=== PATIENT | female | born 1975 | race Caucasian/White ===

== ENCOUNTER 2016-02-21 12:56 | Emergency (ER) | payer SELFPAY ==
[2016-02-21 15:52] LABS: BASOPHILS 0.1 % (0.0-2.0); EOSINOPHILS 0.4 % (0-7); HEMATOCRIT 39.6 % (36.0-48.0); HEMOGLOBIN 12.9 g/dL (12-16); IMMATURE GRANULOCYTES 0.3 % (0-5); MCH 29.9 pg (26.0-34.0); MCHC 32.6 g/dL (31.0-37.0); MCV 91.9 fL (80.0-100.0); MEAN PLATELET VOLUME 10.3 fL (7.4-10.4); MONOCYTES 5.7 % (2-11); NEUTROPHILS 70.5 % (40-80); PLATELET COUNT 191 10x3/uL (130-400); RBC 4.31 10x6/uL (4.00-5.40); RDW 13.1 % (11.5-14.5); WBC 7.6 10x3/uL (4.8-10.8)
[2016-02-21 16:09] LABS: ALBUMIN 3.8 g/dL (3.4-5.0); ALKALINE PHOSPHATASE 66 U/L (46-116); ALT (SGPT) 29 U/L (10-68); BILIRUBIN - TOTAL 0.21 mg/dL (0.2-1.3); CALC OSMOLALITY 282 mosm/kg (275-300); CALCIUM 9.3 mg/dL (8.5-10.1); CARBON DIOXIDE 30.7 mmol/L (21.0-32.0); CHLORIDE - SERUM 105 mmol/L (98-107); CREATININE - SERUM 0.7 mg/dL (0.6-1.3); POTASSIUM - SERUM 4.2 mmol/L (3.5-5.1); PROTEIN - SERUM 7.4 g/dL (6.4-8.2); SODIUM 143 mmol/L (136-145); UREA NITROGEN 9 mg/dL (7-18); eGFR NON AFRICAN AMERICAN > 90 mL/min (90-120)
[2016-02-21 16:10] LABS: GLUCOSE 77 mg/dL (74-106)
[2016-02-21 16:31] LABS: UDS - AMPHET NEGATIVE QUAL (NEGATIVE); UDS - BARB NEGATIVE QUAL (NEGATIVE); UDS - BENZO NEGATIVE QUAL (NEGATIVE); UDS - COCAINE NEGATIVE QUAL (NEGATIVE); UDS - METH NEGATIVE QUAL (NEGATIVE); UDS - OPIATE NEGATIVE QUAL (NEGATIVE); UDS - PCP NEGATIVE QUAL (NEGATIVE); UDS - THC NEGATIVE QUAL (NEGATIVE)
[2016-02-21 16:32] LABS: APPEARANCE HAZY (CLEAR); BILIRUBIN NEGATIVE (NEGATIVE); COLOR YELLOW (YELLOW); GLUCOSE NEGATIVE (NEGATIVE); KETONE NEGATIVE (NEGATIVE); NITRITE NEGATIVE (NEGATIVE); PROTEIN TRACE mg/dL (NEGATIVE); UROBILINOGEN NORMAL (NORMAL)
[2016-02-21 16:33] LABS: BACTERIA FEW /hpf (NONE SEEN); EPITHELIAL CELLS 0-5 /hpf (0-5); LEUKOCYTE ESTERASE TRACE (NEGATIVE); RED CELLS - URINE >50 /hpf (0-5); WHITE CELLS - URINE 0-5 /hpf (0-5)
== END 2016-02-21 17:35 | disposition home or self-care (01) ==
LOC: D.ER 12:56
PROVIDERS: Physician Assistant
DX: R00.2 Palpitations (principal); R53.83 Other fatigue; F31.9 Bipolar disorder, unspecified

== ENCOUNTER 2016-03-03 20:39 | Emergency (ER) | payer MEDICAID ==
[2016-03-03 21:49] LABS: BASOPHILS 0.1 % (0.0-2.0); EOSINOPHILS 0.9 % (0-7); HEMATOCRIT 37.4 % (36.0-48.0); HEMOGLOBIN 12.5 g/dL (12-16); IMMATURE GRANULOCYTES 0.3 % (0-5); LYMPHOCYTES 30.6 % (15-50); MCH 30.1 pg (26.0-34.0); MCHC 33.4 g/dL (31.0-37.0); MCV 90.1 fL (80.0-100.0); MEAN PLATELET VOLUME 10.7 fL (7.4-10.4); MONOCYTES 8.3 % (2-11); NEUTROPHILS 59.8 % (40-80); PLATELET COUNT 175 10x3/uL (130-400); RBC 4.15 10x6/uL (4.00-5.40); RDW 13.2 % (11.5-14.5)
[2016-03-03 22:08] LABS: APPEARANCE CLEAR (CLEAR); BILIRUBIN NEGATIVE (NEGATIVE); COLOR YELLOW (YELLOW); GLUCOSE NEGATIVE (NEGATIVE); HCG URINE NEGATIVE (NEGATIVE); KETONE NEGATIVE (NEGATIVE); LEUKOCYTE ESTERASE NEGATIVE (NEGATIVE); NITRITE NEGATIVE (NEGATIVE); PROTEIN NEGATIVE (NEGATIVE); UROBILINOGEN NORMAL (NORMAL)
[2016-03-03 22:19] LABS: UDS - AMPHET NEGATIVE QUAL (NEGATIVE); UDS - BARB NEGATIVE QUAL (NEGATIVE); UDS - BENZO NEGATIVE QUAL (NEGATIVE); UDS - COCAINE NEGATIVE QUAL (NEGATIVE); UDS - METH NEGATIVE QUAL (NEGATIVE); UDS - OPIATE NEGATIVE QUAL (NEGATIVE); UDS - PCP NEGATIVE QUAL (NEGATIVE); UDS - THC NEGATIVE QUAL (NEGATIVE)
[2016-03-03 22:20] LABS: ALBUMIN 3.6 g/dL (3.4-5.0); ALKALINE PHOSPHATASE 72 U/L (46-116); ALT (SGPT) 26 U/L (10-68); BILIRUBIN - TOTAL 0.16 mg/dL (0.2-1.3); CALC OSMOLALITY 279 mosm/kg (275-300); CALCIUM 9.8 mg/dL (8.5-10.1); CHLORIDE - SERUM 104 mmol/L (98-107); CREATININE - SERUM 0.7 mg/dL (0.6-1.3); GLUCOSE 85 mg/dL (74-106); POTASSIUM - SERUM 3.4 mmol/L (3.5-5.1); SODIUM 142 mmol/L (136-145); UREA NITROGEN 7 mg/dL (7-18); eGFR NON AFRICAN AMERICAN > 90 mL/min (90-120)
== END 2016-03-04 03:16 | disposition short-term general hospital (02) ==
LOC: D.ER 20:39
PROVIDERS: Emergency Medicine
DX: R45.851 Suicidal ideations (principal); F31.9 Bipolar disorder, unspecified

== ENCOUNTER 2016-03-31 16:23 | Emergency (ER) | payer MEDICAID ==
[2016-03-31 17:00] LABS: BASOPHILS 0.4 % (0.0-2.0); HEMATOCRIT 35.7 % (36.0-48.0); HEMOGLOBIN 11.7 g/dL (12-16); LYMPHOCYTES 30.9 % (15-50); MCH 29.9 pg (26.0-34.0); MCHC 32.8 g/dL (31.0-37.0); MCV 91.3 fL (80.0-100.0); MEAN PLATELET VOLUME 10.1 fL (7.4-10.4); MONOCYTES 6.9 % (2-11); NEUTROPHILS 59.8 % (40-80); PLATELET COUNT 163 10x3/uL (130-400); RBC 3.91 10x6/uL (4.00-5.40); RDW 13.5 % (11.5-14.5); WBC 5.1 10x3/uL (4.8-10.8)
[2016-03-31 17:22] LABS: ALBUMIN 3.6 g/dL (3.4-5.0); ALKALINE PHOSPHATASE 63 U/L (46-116); ALT (SGPT) 37 U/L (10-68); BILIRUBIN - TOTAL 0.25 mg/dL (0.2-1.3); CALC OSMOLALITY 281 mosm/kg (275-300); CALCIUM 9.1 mg/dL (8.5-10.1); CARBON DIOXIDE 28.2 mmol/L (21.0-32.0); CHLORIDE - SERUM 104 mmol/L (98-107); CREATININE - SERUM 0.7 mg/dL (0.6-1.3); GLUCOSE 90 mg/dL (74-106); POTASSIUM - SERUM 3.3 mmol/L (3.5-5.1); PROTEIN - SERUM 6.9 g/dL (6.4-8.2); SODIUM 142 mmol/L (136-145); UREA NITROGEN 10 mg/dL (7-18); eGFR NON AFRICAN AMERICAN > 90 mL/min (90-120)
[2016-03-31 18:18] LABS: UDS - AMPHET NEGATIVE QUAL (NEGATIVE); UDS - BARB NEGATIVE QUAL (NEGATIVE); UDS - BENZO NEGATIVE QUAL (NEGATIVE); UDS - COCAINE NEGATIVE QUAL (NEGATIVE); UDS - METH NEGATIVE QUAL (NEGATIVE); UDS - OPIATE NEGATIVE QUAL (NEGATIVE); UDS - PCP NEGATIVE QUAL (NEGATIVE); UDS - THC NEGATIVE QUAL (NEGATIVE)
[2016-03-31 18:24] LABS: APPEARANCE CLEAR (CLEAR); BILIRUBIN NEGATIVE (NEGATIVE); COLOR YELLOW (YELLOW); GLUCOSE NEGATIVE (NEGATIVE); KETONE NEGATIVE (NEGATIVE); LEUKOCYTE ESTERASE TRACE (NEGATIVE); NITRITE NEGATIVE (NEGATIVE); PROTEIN NEGATIVE (NEGATIVE); UROBILINOGEN NORMAL (NORMAL)
[2016-03-31 18:25] LABS: EPITHELIAL CELLS 0-5 /hpf (0-5); RED CELLS - URINE OCC /hpf (0-5); WHITE CELLS - URINE OCC /hpf (0-5)
[2016-03-31 18:26] LABS: BACTERIA FEW /hpf (NONE SEEN)
== END 2016-03-31 20:53 | disposition short-term general hospital (02) ==
LOC: D.ER 16:23
PROVIDERS: Emergency Medicine
DX: F23 Brief psychotic disorder (principal); F31.9 Bipolar disorder, unspecified

== ENCOUNTER 2016-08-16 13:33 | Emergency (ER) | payer MEDICAID ==
[2016-08-16 13:52] LABS: APPEARANCE HAZY (CLEAR); BILIRUBIN NEGATIVE (NEGATIVE); COLOR YELLOW (YELLOW); GLUCOSE NEGATIVE (NEGATIVE); KETONE NEGATIVE (NEGATIVE); LEUKOCYTE ESTERASE NEGATIVE (NEGATIVE); NITRITE NEGATIVE (NEGATIVE); PROTEIN NEGATIVE (NEGATIVE); SPECIFIC GRAVITY 1.005 (1.005-1.020); UROBILINOGEN NORMAL (NORMAL)
[2016-08-16 13:59] LABS: UDS - AMPHET NEGATIVE QUAL (NEGATIVE); UDS - BARB NEGATIVE QUAL (NEGATIVE); UDS - BENZO POSITIVE QUAL (NEGATIVE); UDS - COCAINE NEGATIVE QUAL (NEGATIVE); UDS - METH NEGATIVE QUAL (NEGATIVE); UDS - OPIATE NEGATIVE QUAL (NEGATIVE); UDS - PCP NEGATIVE QUAL (NEGATIVE); UDS - THC NEGATIVE QUAL (NEGATIVE)
[2016-08-16 14:18] LABS: BASOPHILS 0.2 % (0-2); EOSINOPHILS 0.3 % (0-7); HEMOGLOBIN 12.3 g/dL (12-16); IMMATURE GRANULOCYTES 0.2 % (0-5); LYMPHOCYTES 28.9 % (15-50); MCH 30.9 pg (26.0-34.0); MCHC 33.2 g/dL (31.0-37.0); MEAN PLATELET VOLUME 10.1 fL (7.4-10.4); MONOCYTES 8.5 % (2-11); NEUTROPHILS 61.9 % (40-80); PLATELET COUNT 162 10x3/uL (130-400); RBC 3.98 10x6/uL (4.00-5.40); RDW 12.7 % (11.5-14.5); WBC 6.3 10x3/uL (4.8-10.8)
[2016-08-16 14:31] LABS: ALBUMIN 3.6 g/dL (3.4-5.0); ALKALINE PHOSPHATASE 60 U/L (46-116); ALT (SGPT) 26 U/L (10-68); BILIRUBIN - TOTAL 0.22 mg/dL (0.2-1.3); CALC OSMOLALITY 279 mosm/kg (275-300); CALCIUM 8.7 mg/dL (8.5-10.1); CARBON DIOXIDE 26.7 mmol/L (21.0-32.0); CHLORIDE - SERUM 106 mmol/L (98-107); CREATININE - SERUM 0.7 mg/dL (0.6-1.3); GLUCOSE 88 mg/dL (74-106); POTASSIUM - SERUM 3.8 mmol/L (3.5-5.1); PROTEIN - SERUM 6.9 g/dL (6.4-8.2); SODIUM 142 mmol/L (136-145); UREA NITROGEN 8 mg/dL (7-18); eGFR NON AFRICAN AMERICAN > 90 mL/min (90-120)
[2016-08-16 14:44] LABS: HCG SERUM NEGATIVE (NEGATIVE)
== END 2016-08-16 17:24 | disposition short-term general hospital (02) ==
LOC: D.ER 13:33
PROVIDERS: Emergency Medicine; Physician Assistant
DX: Z86.59 Personal history of other mental and behavioral disorders (principal); R45.851 Suicidal ideations; F33.9 Major depressive disorder, recurrent, unspecified

== ENCOUNTER 2016-08-26 22:40 | Emergency (ER) | payer MEDICAID | END 2016-08-27 00:08 | disposition home or self-care (01) | LOC: D.ER 22:40 | DX: Z86.59 Personal history of other mental and behavioral disorders (principal) ==

== ENCOUNTER 2016-09-12 23:11 | Emergency (ER) | payer MEDICAID ==
[2016-09-12 23:39] LABS: APPEARANCE CLEAR (CLEAR); COLOR YELLOW (YELLOW); LEUKOCYTE ESTERASE NEGATIVE (NEGATIVE); NITRITE NEGATIVE (NEGATIVE); PROTEIN NEGATIVE (NEGATIVE); SPECIFIC GRAVITY 1.015 (1.005-1.020)
[2016-09-12 23:40] LABS: BILIRUBIN NEGATIVE (NEGATIVE); GLUCOSE NEGATIVE (NEGATIVE); KETONE NEGATIVE (NEGATIVE); UROBILINOGEN NORMAL (NORMAL)
[2016-09-12 23:40] LABS: BASOPHILS 0.1 % (0-2); EOSINOPHILS 0.8 % (0-7); HEMATOCRIT 36.8 % (36.0-48.0); HEMOGLOBIN 12.5 g/dL (12-16); IMMATURE GRANULOCYTES 0.1 % (0-5); LYMPHOCYTES 29.8 % (15-50); MCH 31.3 pg (26.0-34.0); MCV 92.2 fL (80.0-100.0); MEAN PLATELET VOLUME 10.6 fL (7.4-10.4); MONOCYTES 5.7 % (2-11); NEUTROPHILS 63.5 % (40-80); PLATELET COUNT 156 10x3/uL (130-400); RBC 3.99 10x6/uL (4.00-5.40); RDW 12.5 % (11.5-14.5); WBC 7.7 10x3/uL (4.8-10.8)
[2016-09-12 23:47] LABS: UDS - AMPHET NEGATIVE QUAL (NEGATIVE); UDS - BARB NEGATIVE QUAL (NEGATIVE); UDS - BENZO POSITIVE QUAL (NEGATIVE); UDS - COCAINE NEGATIVE QUAL (NEGATIVE); UDS - METH NEGATIVE QUAL (NEGATIVE); UDS - OPIATE NEGATIVE QUAL (NEGATIVE); UDS - PCP NEGATIVE QUAL (NEGATIVE); UDS - THC NEGATIVE QUAL (NEGATIVE)
[2016-09-12 23:47] LABS: HCG SERUM NEGATIVE (NEGATIVE)
[2016-09-12 23:53] LABS: ALBUMIN 3.5 g/dL (3.4-5.0); ALKALINE PHOSPHATASE 72 U/L (46-116); ALT (SGPT) 22 U/L (10-68); BILIRUBIN - TOTAL 0.16 mg/dL (0.2-1.3); CALC OSMOLALITY 279 mosm/kg (275-300); CALCIUM 8.8 mg/dL (8.5-10.1); CARBON DIOXIDE 29.9 mmol/L (21.0-32.0); CHLORIDE - SERUM 103 mmol/L (98-107); CREATININE - SERUM 0.7 mg/dL (0.6-1.3); GLUCOSE 122 mg/dL (74-106); POTASSIUM - SERUM 3.6 mmol/L (3.5-5.1); PROTEIN - SERUM 6.7 g/dL (6.4-8.2); SODIUM 140 mmol/L (136-145); UREA NITROGEN 12 mg/dL (7-18); eGFR NON AFRICAN AMERICAN > 90 mL/min (90-120)
== END 2016-09-13 05:36 | disposition home or self-care (01) ==
LOC: D.ER 23:11
PROVIDERS: Emergency Medicine
DX: F23 Brief psychotic disorder (principal); R44.2 Other hallucinations; R45.1 Restlessness and agitation; F41.9 Anxiety disorder, unspecified

== ENCOUNTER 2016-10-01 08:45 | Emergency (ER) | payer MEDICAID ==
[2016-10-01 09:20] LABS: BASOPHILS 0.4 % (0-2); EOSINOPHILS 0.4 % (0-7); HEMATOCRIT 37.9 % (36.0-48.0); HEMOGLOBIN 12.9 g/dL (12-16); IMMATURE GRANULOCYTES 0.2 % (0-5); LYMPHOCYTES 29.4 % (15-50); MCH 30.9 pg (26.0-34.0); MCV 90.9 fL (80.0-100.0); MONOCYTES 7.2 % (2-11); NEUTROPHILS 62.4 % (40-80); RBC 4.17 10x6/uL (4.00-5.40); RDW 12.3 % (11.5-14.5); WBC 5.6 10x3/uL (4.8-10.8)
[2016-10-01 09:27] LABS: PLATELET COUNT 212 10x3/uL (130-400)
[2016-10-01 09:28] LABS: ALBUMIN 3.5 g/dL (3.4-5.0); ALKALINE PHOSPHATASE 56 U/L (46-116); ALT (SGPT) 25 U/L (10-68); BILIRUBIN - TOTAL 0.24 mg/dL (0.2-1.3); CALC OSMOLALITY 274 mosm/kg (275-300); CALCIUM 8.5 mg/dL (8.5-10.1); CARBON DIOXIDE 27.9 mmol/L (21.0-32.0); CHLORIDE - SERUM 103 mmol/L (98-107); CREATININE - SERUM 0.7 mg/dL (0.6-1.3); GLUCOSE 107 mg/dL (74-106); POTASSIUM - SERUM 3.6 mmol/L (3.5-5.1); PROTEIN - SERUM 6.9 g/dL (6.4-8.2); SODIUM 138 mmol/L (136-145); UREA NITROGEN 10 mg/dL (7-18); eGFR NON AFRICAN AMERICAN > 90 mL/min (90-120)
[2016-10-01 10:01] LABS: UDS - AMPHET NEGATIVE QUAL (NEGATIVE); UDS - BARB NEGATIVE QUAL (NEGATIVE); UDS - BENZO POSITIVE QUAL (NEGATIVE); UDS - COCAINE NEGATIVE QUAL (NEGATIVE); UDS - METH NEGATIVE QUAL (NEGATIVE); UDS - OPIATE NEGATIVE QUAL (NEGATIVE); UDS - PCP NEGATIVE QUAL (NEGATIVE); UDS - THC NEGATIVE QUAL (NEGATIVE)
[2016-10-01 10:20] LABS: APPEARANCE CLEAR (CLEAR); BILIRUBIN NEGATIVE (NEGATIVE); COLOR YELLOW (YELLOW); GLUCOSE NEGATIVE (NEGATIVE); KETONE NEGATIVE (NEGATIVE); LEUKOCYTE ESTERASE NEGATIVE (NEGATIVE); NITRITE NEGATIVE (NEGATIVE); PROTEIN NEGATIVE (NEGATIVE); UROBILINOGEN NORMAL (NORMAL)
== END 2016-10-01 11:13 | disposition home or self-care (01) ==
LOC: D.ER 08:45
PROVIDERS: Emergency Medicine
DX: R53.1 Weakness (principal); F17.200 Nicotine dependence, unspecified, uncomplicated; R53.83 Other fatigue

== ENCOUNTER → 2016-10-27 16:47 | Outpatient (CLI) | payer MEDICAID | END | disposition home or self-care (01) | LOC: D.MAMMO 11:00 | DX: Z12.31 Encounter for screening mammogram for malignant neoplasm of breast (principal) ==

== ENCOUNTER → 2016-10-28 19:21 | Outpatient (CLI) | payer MEDICAID | END | disposition home or self-care (01) | LOC: D.SLEEP 19:21 | DX: G47.30 Sleep apnea, unspecified (principal) ==

== ENCOUNTER 2016-11-01 14:51 | Emergency (ER) | payer MEDICAID ==
[2016-11-01 15:23] LABS: APPEARANCE CLEAR (CLEAR); BILIRUBIN NEGATIVE (NEGATIVE); COLOR STRAW (YELLOW); GLUCOSE NEGATIVE (NEGATIVE); KETONE NEGATIVE (NEGATIVE); LEUKOCYTE ESTERASE NEGATIVE (NEGATIVE); NITRITE NEGATIVE (NEGATIVE); PROTEIN NEGATIVE (NEGATIVE); SPECIFIC GRAVITY 1.005 (1.005-1.020); UROBILINOGEN NORMAL (NORMAL)
[2016-11-01 15:29] LABS: BASOPHILS 0.2 % (0-2); EOSINOPHILS 1.7 % (0-7); HEMATOCRIT 36.9 % (36.0-48.0); HEMOGLOBIN 12.7 g/dL (12-16); IMMATURE GRANULOCYTES 0.2 % (0-5); LYMPHOCYTES 28.1 % (15-50); MCH 31.2 pg (26.0-34.0); MCHC 34.4 g/dL (31.0-37.0); MCV 90.7 fL (80.0-100.0); MONOCYTES 7.2 % (2-11); NEUTROPHILS 62.6 % (40-80); PLATELET COUNT 191 10x3/uL (130-400); RBC 4.07 10x6/uL (4.00-5.40); RDW 12.5 % (11.5-14.5); WBC 5.7 10x3/uL (4.8-10.8)
[2016-11-01 15:35] LABS: UDS - AMPHET NEGATIVE QUAL (NEGATIVE); UDS - BARB NEGATIVE QUAL (NEGATIVE); UDS - BENZO POSITIVE QUAL (NEGATIVE); UDS - COCAINE NEGATIVE QUAL (NEGATIVE); UDS - METH NEGATIVE QUAL (NEGATIVE); UDS - OPIATE NEGATIVE QUAL (NEGATIVE); UDS - PCP NEGATIVE QUAL (NEGATIVE); UDS - THC NEGATIVE QUAL (NEGATIVE)
[2016-11-01 15:51] LABS: ALBUMIN 3.6 g/dL (3.4-5.0); ALKALINE PHOSPHATASE 55 U/L (46-116); ALT (SGPT) 27 U/L (10-68); CALC OSMOLALITY 275 mosm/kg (275-300); CALCIUM 8.9 mg/dL (8.5-10.1); CARBON DIOXIDE 27.6 mmol/L (21.0-32.0); CHLORIDE - SERUM 104 mmol/L (98-107); CREATININE - SERUM 0.7 mg/dL (0.6-1.3); GLUCOSE 86 mg/dL (74-106); POTASSIUM - SERUM 3.6 mmol/L (3.5-5.1); PROTEIN - SERUM 6.8 g/dL (6.4-8.2); SODIUM 139 mmol/L (136-145); UREA NITROGEN 11 mg/dL (7-18); eGFR NON AFRICAN AMERICAN > 90 mL/min (90-120)
== END 2016-11-01 20:02 | disposition short-term general hospital (02) ==
LOC: D.ER 14:51
PROVIDERS: Emergency Medicine
DX: F33.9 Major depressive disorder, recurrent, unspecified (principal); R45.851 Suicidal ideations

== ENCOUNTER 2016-11-19 06:57 | Day surgery (SDC) | payer MEDICAID ==
[2016-11-18 13:55] LABS: HEMATOCRIT 36.1 % (36.0-48.0); HEMOGLOBIN 12.2 g/dL (12-16); MCH 31.3 pg (26.0-34.0); MCHC 33.8 g/dL (31.0-37.0); MCV 92.6 fL (80.0-100.0); MEAN PLATELET VOLUME 9.4 fL (7.4-10.4); RBC 3.9 10x6/uL (4.00-5.40); RDW 12.8 % (11.5-14.5); WBC 7.2 10x3/uL (4.8-10.8)
[~2016-11-19 06:57] MED LIST: BUPROPION XL300 MG PO; GLYCOLAX527 GM PO; PROZAC40 MG PO; VALIUM10 MG PO; ZOLOFT50 MG PO
[2016-11-19 10:03] VITALS: BMI 38.1
[2016-11-19 12:36] LABS: HCG SERUM NEGATIVE (NEGATIVE)
--- NOTE | 2016-12-08 10:04 | OP ---
PATIENT NAME: CRUZ SANCHEZ MEDICAL RECORD: [id number] :71 LOCATION:[facility] ADMISSION DATE: SURGEON: MANAS MONTERO DATE OF OPERATION: 11/19/2016 SURGEON: Manas Montero DPM. PREOPERATIVE DIAGNOSIS: Plantar fasciitis, left foot. POSTOPERATIVE DIAGNOSIS: Plantar fasciitis, left foot. PROCEDURE: Open partial plantar fasciotomy, left foot. ANESTHESIA: TIVA with local field block. HEMOSTASIS: Pneumatic ankle tourniquet inflated to 250 mmHg. ESTIMATED BLOOD LOSS: Minimal. MATERIALS: 3-0 nylon. INJECTABLES: A 10 cc of 0.5% bupivacaine plain and 5 cc of 1.0% Lidocaine plain. The patient has longstanding history of pain associated with her left foot. She has failed conservative measures. She is here today for surgical correction of this chronically painful condition. I have reviewed with her the risks and benefits of the procedure. Complications were discussed. Her questions were answered. She was appropriately consented for the above procedure. The patient was brought into the operating room and placed on the operating table in supine position. A timeout was called with Dr. Montero, who identified the patient, the surgical site, and the surgery to be performed. Once appropriate anesthesia was obtained, the foot was prepped and draped in the usual aseptic manner. The pneumatic ankle tourniquet was inflated to 250 mmHg around the well-padded left ankle. PROCEDURE: Plantar fasciotomy, left foot. Attention was directed to the plantar surface of the left foot where a 3-cm linear incision was made over the medial calcaneal tubercle area. This incision was carried deep to soft tissue with care being taken to retract all vital neurovascular structures. All bleeders were cauterized along the way. Through this incision, the medial one-third band of the plantar fascia was identified. The band was noted to be quite tight. Utilizing a fresh 15-blade, the medial one-third of the plantar fascia was transected from medial to lateral. The surgical site was inspected for any remaining tight plantar fascial bands and none were noted. The surgical site was then irrigated with copious amounts of normal sterile saline via bulb syringe. The surgical site was then reinvestigated for any remaining tight fascial bands and none were noted. The surgical site was then reirrigated with copious amounts of normal sterile saline via bulb syringe. OPERATIVE REPORT [id number] CRUZ SANCHEZ The skin margins were reapproximated and coapted using 3-0 nylon. A dressing consisting of Xeroform, 4 x 4's, Kerlix, and an Aguilar bandage was applied to the left foot. The pneumatic ankle tourniquet was deflated and capillary refill time was immediate to all digits of the left foot. The patient will be discharged home with instructions to ice and elevate the left foot. She has a boot to help with offloading. She was provided with prescriptions for Highland 5/325, Phenergan 25 mg, and ibuprofen 800 mg. She was dispensed my cell phone number for any after hour difficulties and there were no complications with this procedure. TRANSINT:[id number] Voice Confirmation ID: [id number] DOCUMENT ID: [id number] MANAS MONTERO at 1004 CC: [id number] DICTATION DATE: 11/19/16 1254 MERCHANT MARINER: 11/19/[address] [facility] 11/19/16 [id number] [place] [address]
== END 2016-11-19 13:45 | disposition home or self-care (01) ==
LOC: D.OPS 06:57 → D.PAN 11:30 → D.OPS 13:00
PROVIDERS: Anesthesiology
DX: M72.2 Plantar fascial fibromatosis (principal); Z01.812 Encounter for preprocedural laboratory examination

== ENCOUNTER 2016-11-30 17:44 | Emergency (ER) | payer MEDICAID ==
[2016-11-30 18:24] LABS: UDS - AMPHET NEGATIVE QUAL (NEGATIVE); UDS - BARB NEGATIVE QUAL (NEGATIVE); UDS - BENZO POSITIVE QUAL (NEGATIVE); UDS - COCAINE NEGATIVE QUAL (NEGATIVE); UDS - OPIATE NEGATIVE QUAL (NEGATIVE); UDS - PCP NEGATIVE QUAL (NEGATIVE); UDS - THC NEGATIVE QUAL (NEGATIVE)
[2016-11-30 18:25] LABS: APPEARANCE CLEAR (CLEAR); COLOR YELLOW (YELLOW)
[2016-11-30 18:26] LABS: BILIRUBIN NEGATIVE (NEGATIVE); GLUCOSE NEGATIVE (NEGATIVE); KETONE NEGATIVE (NEGATIVE); NITRITE NEGATIVE (NEGATIVE); PROTEIN NEGATIVE (NEGATIVE); UROBILINOGEN NORMAL (NORMAL)
[2016-11-30 18:48] LABS: BASOPHILS 0.2 % (0-2); EOSINOPHILS 1.1 % (0-7); HEMATOCRIT 34.8 % (36.0-48.0); HEMOGLOBIN 11.6 g/dL (12-16); IMMATURE GRANULOCYTES 0.2 % (0-5); LYMPHOCYTES 25.9 % (15-50); MCH 31.2 pg (26.0-34.0); MCHC 33.3 g/dL (31.0-37.0); MCV 93.5 fL (80.0-100.0); MEAN PLATELET VOLUME 9.9 fL (7.4-10.4); MONOCYTES 6.8 % (2-11); NEUTROPHILS 65.8 % (40-80); RBC 3.72 10x6/uL (4.00-5.40); WBC 6.2 10x3/uL (4.8-10.8)
[2016-11-30 18:49] LABS: PLATELET COUNT 190 10x3/uL (130-400)
[2016-11-30 18:56] LABS: HCG SERUM NEGATIVE (NEGATIVE)
[2016-11-30 19:37] LABS: ALBUMIN 3.4 g/dL (3.4-5.0); ALKALINE PHOSPHATASE 58 U/L (46-116); ALT (SGPT) 24 U/L (10-68); CALC OSMOLALITY 287 mosm/kg (275-300); CALCIUM 8.5 mg/dL (8.5-10.1); CARBON DIOXIDE 29.1 mmol/L (21.0-32.0); CHLORIDE - SERUM 107 mmol/L (98-107); CREATININE - SERUM 0.7 mg/dL (0.6-1.3); GLUCOSE 92 mg/dL (74-106); POTASSIUM - SERUM 3.6 mmol/L (3.5-5.1); PROTEIN - SERUM 6.3 g/dL (6.4-8.2); SODIUM 144 mmol/L (136-145); UREA NITROGEN 14 mg/dL (7-18); eGFR NON AFRICAN AMERICAN > 90 mL/min (90-120)
[2016-11-30 19:39] LABS: BILIRUBIN - TOTAL 0.03 mg/dL (0.2-1.3)
== END 2016-11-30 20:30 | disposition home or self-care (01) ==
LOC: D.ER 17:44
PROVIDERS: Emergency Medicine
DX: F33.9 Major depressive disorder, recurrent, unspecified (principal)

== ENCOUNTER 2016-12-01 14:20 | Emergency (ER) | payer MEDICAID ==
[2016-12-01 14:51] LABS: UDS - AMPHET NEGATIVE QUAL (NEGATIVE); UDS - BARB NEGATIVE QUAL (NEGATIVE); UDS - BENZO POSITIVE QUAL (NEGATIVE); UDS - COCAINE NEGATIVE QUAL (NEGATIVE); UDS - OPIATE NEGATIVE QUAL (NEGATIVE); UDS - PCP NEGATIVE QUAL (NEGATIVE); UDS - THC NEGATIVE QUAL (NEGATIVE)
[2016-12-01 14:59] LABS: COLOR RED (YELLOW)
[2016-12-01 15:00] LABS: APPEARANCE HAZY (CLEAR); BILIRUBIN NEGATIVE (NEGATIVE); GLUCOSE NEGATIVE (NEGATIVE); KETONE NEGATIVE (NEGATIVE); NITRITE NEGATIVE (NEGATIVE); PROTEIN TRACE mg/dL (NEGATIVE); SPECIFIC GRAVITY 1.005 (1.005-1.020); UROBILINOGEN NORMAL (NORMAL)
[2016-12-01 15:01] LABS: BACTERIA FEW /hpf (NONE SEEN); EPITHELIAL CELLS 0-5 /hpf (0-5); RED CELLS - URINE >50 /hpf (0-5)
[2016-12-01 15:17] LABS: ALBUMIN 3.5 g/dL (3.4-5.0); ALKALINE PHOSPHATASE 57 U/L (46-116); ALT (SGPT) 24 U/L (10-68); BILIRUBIN - TOTAL 0.15 mg/dL (0.2-1.3); CALCIUM 8.6 mg/dL (8.5-10.1); CARBON DIOXIDE 27.1 mmol/L (21.0-32.0); CHLORIDE - SERUM 106 mmol/L (98-107); CREATININE - SERUM 0.7 mg/dL (0.6-1.3); POTASSIUM - SERUM 3.5 mmol/L (3.5-5.1); PROTEIN - SERUM 6.4 g/dL (6.4-8.2); SODIUM 143 mmol/L (136-145); eGFR NON AFRICAN AMERICAN > 90 mL/min (90-120)
[2016-12-01 15:23] LABS: BASOPHILS 0 % (0-2); EOSINOPHILS 0.9 % (0-7); HEMATOCRIT 36.3 % (36.0-48.0); HEMOGLOBIN 12.2 g/dL (12-16); IMMATURE GRANULOCYTES 0.2 % (0-5); LYMPHOCYTES 23.3 % (15-50); MCH 31.1 pg (26.0-34.0); MCHC 33.6 g/dL (31.0-37.0); MCV 92.6 fL (80.0-100.0); MEAN PLATELET VOLUME 10.2 fL (7.4-10.4); MONOCYTES 6.4 % (2-11); NEUTROPHILS 69.2 % (40-80); PLATELET COUNT 189 10x3/uL (130-400); RBC 3.92 10x6/uL (4.00-5.40); WBC 5.7 10x3/uL (4.8-10.8)
[2016-12-01 15:33] LABS: CALC OSMOLALITY 285 mosm/kg (275-300); GLUCOSE 141 mg/dL (74-106); UREA NITROGEN 10 mg/dL (7-18)
== END 2016-12-02 00:07 | disposition short-term general hospital (02) ==
LOC: D.ER 14:20
PROVIDERS: Emergency Medicine
DX: R45.851 Suicidal ideations (principal); Z86.59 Personal history of other mental and behavioral disorders

== ENCOUNTER 2017-01-26 15:45 | Emergency (ER) | payer MEDICAID ==
[2017-01-26 17:07] LABS: BASOPHILS 0.1 % (0-2); EOSINOPHILS 0.3 % (0-7); HEMATOCRIT 34.9 % (36.0-48.0); IMMATURE GRANULOCYTES 0.3 % (0-5); LYMPHOCYTES 21.9 % (15-50); MCH 30.8 pg (26.0-34.0); MCHC 34.4 g/dL (31.0-37.0); MCV 89.7 fL (80.0-100.0); MEAN PLATELET VOLUME 10.1 fL (7.4-10.4); MONOCYTES 8.4 % (2-11); PLATELET COUNT 160 10x3/uL (130-400); RBC 3.89 10x6/uL (4.00-5.40); RDW 12.1 % (11.5-14.5); WBC 7.3 10x3/uL (4.8-10.8)
== END 2017-01-26 17:25 | disposition home or self-care (01) ==
LOC: D.ER 15:45
PROVIDERS: Emergency Medicine
DX: R10.9 Unspecified abdominal pain (principal)

== ENCOUNTER → 2017-04-20 09:59 | Outpatient (CLI) | payer MEDICAID ==
[~2017-04-20 09:59] MED LIST changes: +AMBIEN5 MG PO; +CARAFATE1 G PO; +CLONAZEPAM2 MG/TAB PO; +INVEGA6 MG/BLIST PO
== END | disposition home or self-care (01) ==
LOC: D.RAD 09:59
DX: R13.10 Dysphagia, unspecified (principal)

== ENCOUNTER 2017-04-27 12:53 | Emergency (ER) | payer MEDICAID ==
[~2017-04-27 12:53] MED LIST changes: -AMBIEN5 MG PO; -CARAFATE1 G PO; -CLONAZEPAM2 MG/TAB PO; -INVEGA6 MG/BLIST PO
[2017-04-27 13:34] LABS: APPEARANCE HAZY (CLEAR); BILIRUBIN NEGATIVE (NEGATIVE); COLOR YELLOW (YELLOW); GLUCOSE NEGATIVE (NEGATIVE); KETONE NEGATIVE (NEGATIVE); NITRITE NEGATIVE (NEGATIVE); PROTEIN NEGATIVE (NEGATIVE); SPECIFIC GRAVITY 1.015 (1.005-1.020); UROBILINOGEN NORMAL (NORMAL)
[2017-04-27 13:37] LABS: BACTERIA MODERATE /hpf (NONE SEEN); MUCUS >1+ /lpf (NONE SEEN); RED CELLS - URINE 0-5 /hpf (0-5); WHITE CELLS - URINE OCC /hpf (0-5)
[2017-04-27 13:45] LABS: BASOPHILS 0.1 % (0-2); EOSINOPHILS 1.2 % (0-7); HEMATOCRIT 35.3 % (36.0-48.0); HEMOGLOBIN 11.5 g/dL (12-16); IMMATURE GRANULOCYTES 0.1 % (0-5); MCH 29.8 pg (26.0-34.0); MCHC 32.6 g/dL (31.0-37.0); MCV 91.5 fL (80.0-100.0); MEAN PLATELET VOLUME 10.5 fL (7.4-10.4); MONOCYTES 5.4 % (2-11); NEUTROPHILS 71.2 % (40-80); PLATELET COUNT 186 10x3/uL (130-400); RBC 3.86 10x6/uL (4.00-5.40); WBC 6.7 10x3/uL (4.8-10.8)
[2017-04-27 14:06] LABS: ALBUMIN 3.5 g/dL (3.4-5.0); ALKALINE PHOSPHATASE 67 U/L (46-116); ALT (SGPT) 27 U/L (10-68); AMYLASE - SERUM 36 U/L (25-115); CALC OSMOLALITY 283 mosm/kg (275-300); CALCIUM 8.7 mg/dL (8.5-10.1); CARBON DIOXIDE 28.2 mmol/L (21.0-32.0); CHLORIDE - SERUM 106 mmol/L (98-107); CREATININE - SERUM 0.8 mg/dL (0.6-1.3); GLUCOSE 102 mg/dL (74-106); POTASSIUM - SERUM 3.7 mmol/L (3.5-5.1); PROTEIN - SERUM 7.1 g/dL (6.4-8.2); SODIUM 142 mmol/L (136-145); UREA NITROGEN 14 mg/dL (7-18); eGFR NON AFRICAN AMERICAN 83 mL/min (90-120)
[2017-04-27 14:40] LABS: UDS - AMPHET NEGATIVE QUAL (NEGATIVE); UDS - BARB NEGATIVE QUAL (NEGATIVE); UDS - BENZO NEGATIVE QUAL (NEGATIVE); UDS - COCAINE NEGATIVE QUAL (NEGATIVE); UDS - OPIATE NEGATIVE QUAL (NEGATIVE); UDS - PCP NEGATIVE QUAL (NEGATIVE); UDS - THC NEGATIVE QUAL (NEGATIVE)
== END 2017-04-28 13:00 | disposition home or self-care (01) ==
LOC: D.ER 12:53
PROVIDERS: Family Medicine; Nurse Practitioner Family
DX: Z86.59 Personal history of other mental and behavioral disorders (principal); R45.851 Suicidal ideations

== ENCOUNTER 2017-06-12 00:59 | Emergency (ER) | payer MEDICAID | END 2017-06-12 01:42 | disposition home or self-care (01) | LOC: D.ER 00:59 | DX: L50.9 Urticaria, unspecified (principal) ==

== ENCOUNTER 2017-07-14 16:15 | Emergency (ER) | payer MEDICAID ==
[2017-07-14 16:29] VITALS: Ht 157.5 cm
[2017-07-14] MEDS ORDERED: CLONAZEPAM2 MG/TAB PO (16:37)
[2017-07-14] MEDS ORDERED: CARAFATE1 G PO (16:38)
[2017-07-14 17:57] LABS: APPEARANCE CLEAR (CLEAR); BILIRUBIN NEGATIVE (NEGATIVE); COLOR YELLOW (YELLOW); GLUCOSE NEGATIVE (NEGATIVE); KETONE NEGATIVE (NEGATIVE); NITRITE NEGATIVE (NEGATIVE); PROTEIN NEGATIVE (NEGATIVE); UROBILINOGEN NORMAL (NORMAL)
[2017-07-14 18:11] LABS: BASOPHILS 0.1 % (0-2); EOSINOPHILS 0 % (0-7); HEMATOCRIT 36.6 % (36.0-48.0); HEMOGLOBIN 12.5 g/dL (12-16); IMMATURE GRANULOCYTES 0.2 % (0-5); LYMPHOCYTES 14.8 % (15-50); MCH 30.6 pg (26.0-34.0); MCHC 34.2 g/dL (31.0-37.0); MCV 89.5 fL (80.0-100.0); MEAN PLATELET VOLUME 10.1 fL (7.4-10.4); MONOCYTES 4.8 % (2-11); NEUTROPHILS 80.1 % (40-80); PLATELET COUNT 191 10x3/uL (130-400); RBC 4.09 10x6/uL (4.00-5.40); WBC 11.2 10x3/uL (4.8-10.8)
[2017-07-14 18:14] LABS: UDS - AMPHET NEGATIVE QUAL (NEGATIVE); UDS - BARB NEGATIVE QUAL (NEGATIVE); UDS - BENZO NEGATIVE QUAL (NEGATIVE); UDS - COCAINE NEGATIVE QUAL (NEGATIVE); UDS - OPIATE NEGATIVE QUAL (NEGATIVE); UDS - PCP NEGATIVE QUAL (NEGATIVE); UDS - THC NEGATIVE QUAL (NEGATIVE)
[2017-07-14] MEDS ORDERED: INVEGA6 MG/BLIST PO (18:21)
[2017-07-14] MEDS ORDERED: AMBIEN5 MG PO (18:21)
[2017-07-14 18:28] LABS: ALBUMIN 3.6 g/dL (3.4-5.0); ALKALINE PHOSPHATASE 81 U/L (46-116); ALT (SGPT) 26 U/L (10-68); BILIRUBIN - TOTAL 0.22 mg/dL (0.2-1.3); CALC OSMOLALITY 272 mosm/kg (275-300); CALCIUM 8.5 mg/dL (8.5-10.1); CARBON DIOXIDE 24.5 mmol/L (21.0-32.0); CHLORIDE - SERUM 101 mmol/L (98-107); CREATININE - SERUM 0.8 mg/dL (0.6-1.3); POTASSIUM - SERUM 3.5 mmol/L (3.5-5.1); PROTEIN - SERUM 7.4 g/dL (6.4-8.2); SODIUM 135 mmol/L (136-145); UREA NITROGEN 9 mg/dL (7-18); eGFR NON AFRICAN AMERICAN 82 mL/min (90-120)
[2017-07-14 18:29] LABS: GLUCOSE 165 mg/dL (74-106)
[2017-07-14 18:40] VITALS: BP 112/078
== END 2017-07-14 18:40 | disposition home or self-care (01) ==
LOC: D.ER 16:15
PROVIDERS: Family Medicine
DX: F41.9 Anxiety disorder, unspecified (principal); F23 Brief psychotic disorder; F43.9 Reaction to severe stress, unspecified; R45.1 Restlessness and agitation; G47.00 Insomnia, unspecified

== ENCOUNTER 2017-08-08 11:04 | Emergency (ER) | payer MEDICAID ==
[~2017-08-08] VITALS: Ht 157.5 cm; Wt 100.1 kg
[~2017-08-08 11:04] MED LIST changes: +AMBIEN5 MG PO; +CARAFATE1 G PO; +CLONAZEPAM2 MG/TAB PO; +INVEGA6 MG/BLIST PO
[2017-08-08 11:10] VITALS: Ht 157.5 cm; Wt 100.1 kg
[2017-08-08 11:58] LABS: APPEARANCE HAZY (CLEAR); BILIRUBIN NEGATIVE (NEGATIVE); COLOR YELLOW (YELLOW); GLUCOSE NEGATIVE (NEGATIVE); KETONE NEGATIVE (NEGATIVE); NITRITE NEGATIVE (NEGATIVE); PH 7.5 (5.0-6.0); PROTEIN NEGATIVE (NEGATIVE); SPECIFIC GRAVITY 1.005 (1.005-1.020); UROBILINOGEN NORMAL (NORMAL)
[2017-08-08 11:59] LABS: UDS - AMPHET NEGATIVE QUAL (NEGATIVE); UDS - BARB NEGATIVE QUAL (NEGATIVE); UDS - BENZO NEGATIVE QUAL (NEGATIVE); UDS - COCAINE NEGATIVE QUAL (NEGATIVE); UDS - OPIATE NEGATIVE QUAL (NEGATIVE); UDS - PCP NEGATIVE QUAL (NEGATIVE); UDS - THC NEGATIVE QUAL (NEGATIVE)
[2017-08-08 12:01] LABS: BACTERIA MODERATE /hpf (NONE SEEN); EPITHELIAL CELLS 0-5 /hpf (0-5); RED CELLS - URINE OCC /hpf (0-5)
[2017-08-08 12:16] LABS: BASOPHILS 0 % (0-2); EOSINOPHILS 0.1 % (0-7); HEMATOCRIT 38.2 % (36.0-48.0); HEMOGLOBIN 12.7 g/dL (12-16); IMMATURE GRANULOCYTES 0.1 % (0-5); LYMPHOCYTES 21.7 % (15-50); MCH 30.5 pg (26.0-34.0); MCHC 33.2 g/dL (31.0-37.0); MCV 91.6 fL (80.0-100.0); MEAN PLATELET VOLUME 10.4 fL (7.4-10.4); MONOCYTES 5.4 % (2-11); NEUTROPHILS 72.7 % (40-80); PLATELET COUNT 170 10x3/uL (130-400); RBC 4.17 10x6/uL (4.00-5.40); RDW 13.5 % (11.5-14.5); WBC 8.3 10x3/uL (4.8-10.8)
[2017-08-08 12:28] LABS: HCG SERUM NEGATIVE (NEGATIVE)
[2017-08-08 12:35] LABS: ALBUMIN 3.8 g/dL (3.4-5.0); ALKALINE PHOSPHATASE 85 U/L (46-116); ALT (SGPT) 20 U/L (10-68); BILIRUBIN - TOTAL 0.15 mg/dL (0.2-1.3); CALC OSMOLALITY 280 mosm/kg (275-300); CALCIUM 8.9 mg/dL (8.5-10.1); CARBON DIOXIDE 30.3 mmol/L (21.0-32.0); CHLORIDE - SERUM 105 mmol/L (98-107); CREATININE - SERUM 0.8 mg/dL (0.6-1.3); GLUCOSE 98 mg/dL (74-106); POTASSIUM - SERUM 3.9 mmol/L (3.5-5.1); PROTEIN - SERUM 7.6 g/dL (6.4-8.2); SODIUM 141 mmol/L (136-145); UREA NITROGEN 12 mg/dL (7-18); eGFR NON AFRICAN AMERICAN 82 mL/min (90-120)
[2017-08-08 14:18] VITALS: BP 147/64
== END 2017-08-08 14:19 | disposition home or self-care (01) ==
LOC: D.ER 11:04
PROVIDERS: Family Medicine
DX: T50.905A Adverse effect of unspecified drugs, medicaments and biological substances, initial encounter (principal); Y92.22 Religious institution as the place of occurrence of the external cause; R41.82 Altered mental status, unspecified; Z86.59 Personal history of other mental and behavioral disorders; K21.9 Gastro-esophageal reflux disease without esophagitis; E11.9 Type 2 diabetes mellitus without complications

== ENCOUNTER 2017-08-20 18:21 | Emergency (ER) | payer MEDICAID ==
[~2017-08-20] VITALS: Ht 157.5 cm; Wt 98.6 kg
[2017-08-20 18:24] VITALS: Ht 157.5 cm; Wt 98.6 kg
[2017-08-20 19:45] LABS: BASOPHILS 0.1 % (0-2); EOSINOPHILS 0.5 % (0-7); HEMATOCRIT 35.5 % (36.0-48.0); IMMATURE GRANULOCYTES 0.1 % (0-5); LYMPHOCYTES 26.7 % (15-50); MCH 30.4 pg (26.0-34.0); MCHC 33.8 g/dL (31.0-37.0); MCV 89.9 fL (80.0-100.0); MEAN PLATELET VOLUME 10.3 fL (7.4-10.4); MONOCYTES 4.6 % (2-11); PLATELET COUNT 193 10x3/uL (130-400); RBC 3.95 10x6/uL (4.00-5.40); RDW 13.2 % (11.5-14.5); WBC 7.6 10x3/uL (4.8-10.8)
[2017-08-20 19:45] LABS: APPEARANCE CLEAR (CLEAR); BILIRUBIN NEGATIVE (NEGATIVE); COLOR STRAW (YELLOW); GLUCOSE NEGATIVE (NEGATIVE); KETONE NEGATIVE (NEGATIVE); NITRITE NEGATIVE (NEGATIVE); PROTEIN NEGATIVE (NEGATIVE); UROBILINOGEN NORMAL (NORMAL)
[2017-08-20 19:46] LABS: WHITE CELLS - URINE 0-5 /hpf (0-5)
[2017-08-20 19:47] LABS: BACTERIA MODERATE /hpf (NONE SEEN); EPITHELIAL CELLS 0-5 /hpf (0-5)
[2017-08-20 19:56] LABS: ALBUMIN 3.6 g/dL (3.4-5.0); ANION GAP 11.6 mmol/L (8-16); BILIRUBIN - TOTAL 0.15 mg/dL (0.2-1.3); CALCIUM 8.9 mg/dL (8.5-10.1); POTASSIUM - SERUM 3.6 mmol/L (3.5-5.1); PROTEIN - SERUM 7.2 g/dL (6.4-8.2)
[2017-08-20 20:05] LABS: UDS - AMPHET NEGATIVE QUAL (NEGATIVE); UDS - BARB NEGATIVE QUAL (NEGATIVE); UDS - BENZO NEGATIVE QUAL (NEGATIVE); UDS - COCAINE NEGATIVE QUAL (NEGATIVE); UDS - OPIATE NEGATIVE QUAL (NEGATIVE); UDS - PCP NEGATIVE QUAL (NEGATIVE); UDS - THC NEGATIVE QUAL (NEGATIVE)
[2017-08-20 20:12] LABS: HCG SERUM NEGATIVE (NEGATIVE)
[2017-08-20 20:26] LABS: THYROID STIMULATING HORMONE 0.96 uIU/mL (0.36-3.74)
[2017-08-20 23:04] VITALS: BP 135/74
== END 2017-08-20 23:57 | disposition home or self-care (01) ==
LOC: D.ER 18:21
PROVIDERS: Family Medicine
DX: R45.851 Suicidal ideations (principal); R44.0 Auditory hallucinations

== ENCOUNTER 2018-01-16 14:16 | Emergency (ER) | payer MEDICAID ==
[2018-01-16 14:44] LABS: APPEARANCE CLEAR (CLEAR); BILIRUBIN NEGATIVE (NEGATIVE); COLOR STRAW (YELLOW); GLUCOSE NEGATIVE (NEGATIVE); KETONE NEGATIVE (NEGATIVE); NITRITE NEGATIVE (NEGATIVE); PROTEIN NEGATIVE (NEGATIVE); SPECIFIC GRAVITY 1.005 (1.005-1.020); UROBILINOGEN NORMAL (NORMAL)
[2018-01-16 14:47] LABS: BACTERIA MODERATE /hpf (NONE SEEN); EPITHELIAL CELLS 0-5 /hpf (0-5); RED CELLS - URINE 0-5 /hpf (0-5); WHITE CELLS - URINE 0-5 /hpf (0-5)
[2018-01-16 14:54] LABS: BASOPHILS 0.1 % (0-2); EOSINOPHILS 0.1 % (0-7); HEMOGLOBIN 11.5 g/dL (12-16); IMMATURE GRANULOCYTES 0.1 % (0-5); LYMPHOCYTES 23.9 % (15-50); MCH 29.1 pg (26.0-34.0); MCHC 32.9 g/dL (31.0-37.0); MCV 88.6 fL (80.0-100.0); MEAN PLATELET VOLUME 10.3 fL (7.4-10.4); MONOCYTES 6.7 % (2-11); NEUTROPHILS 69.1 % (40-80); PLATELET COUNT 191 10x3/uL (130-400); RBC 3.95 10x6/uL (4.00-5.40); RDW 13.3 % (11.5-14.5); WBC 7.5 10x3/uL (4.8-10.8)
[2018-01-16 15:10] LABS: ALBUMIN 3.4 g/dL (3.4-5.0); ALKALINE PHOSPHATASE 58 U/L (46-116); ALT (SGPT) 17 U/L (10-68); CALC OSMOLALITY 279 mosm/kg (275-300); CALCIUM 8.3 mg/dL (8.5-10.1); CARBON DIOXIDE 30.6 mmol/L (21.0-32.0); CHLORIDE - SERUM 104 mmol/L (98-107); CREATININE - SERUM 0.7 mg/dL (0.6-1.3); GLUCOSE 87 mg/dL (74-106); POTASSIUM - SERUM 3.6 mmol/L (3.5-5.1); PROTEIN - SERUM 6.9 g/dL (6.4-8.2); SODIUM 142 mmol/L (136-145); UREA NITROGEN 8 mg/dL (7-18); eGFR NON AFRICAN AMERICAN > 90 mL/min (90-120)
[2018-01-16 15:20] LABS: AMYLASE - SERUM 36 U/L (25-115); CKMB 0.6 U/L (0.0-3.6); CREATINE KINASE 78 UL (21-215); LIPASE 115 U/L (73-393); MAGNESIUM - SERUM 1.6 mg/dL (1.8-2.4)
[2018-01-16 15:27] LABS: TROPONIN-I < 0.017 ng/mL (0.000-0.060)
== END 2018-01-16 15:57 | disposition home or self-care (01) ==
LOC: D.ER 14:16
PROVIDERS: Family Medicine
DX: R53.83 Other fatigue (principal); E11.9 Type 2 diabetes mellitus without complications; Z87.898 Personal history of other specified conditions

== ENCOUNTER 2018-06-22 18:08 | Emergency (ER) | payer MEDICAID ==
[~2018-06-22] VITALS: Ht 157.5 cm; Wt 87.3 kg
[2018-06-22 18:22] VITALS: Ht 157.5 cm; Wt 87.3 kg
[2018-06-22] MEDS ORDERED: PROVENTIL/2.5 MG/3 M INH (18:26)
[2018-06-22] MEDS ORDERED: TORADOL10 MG PO (18:26)
[2018-06-22] MEDS ORDERED: NEXIUM40 MG PO (18:27)
[2018-06-22] MEDS ORDERED: ULTRAM50 MG PO (18:27)
[2018-06-22] MEDS ORDERED: COZAAR50 MG PO (18:28)
[2018-06-22 18:53] LABS: APPEARANCE CLEAR (CLEAR); BILIRUBIN NEGATIVE (NEGATIVE); COLOR YELLOW (YELLOW); GLUCOSE NEGATIVE (NEGATIVE); KETONE NEGATIVE (NEGATIVE); NITRITE NEGATIVE (NEGATIVE); PROTEIN NEGATIVE (NEGATIVE); SPECIFIC GRAVITY 1.025 (1.005-1.020); UROBILINOGEN NORMAL (NORMAL)
[2018-06-22 19:25] LABS: BASOPHILS 0.4 % (0-2); EOSINOPHILS 0.4 % (0-7); HEMATOCRIT 34.4 % (36.0-48.0); HEMOGLOBIN 11.5 g/dL (12-16); IMMATURE GRANULOCYTES 0.2 % (0-5); LYMPHOCYTES 30.4 % (15-50); MCH 29.7 pg (26.0-34.0); MCHC 33.4 g/dL (31.0-37.0); MCV 88.9 fL (80.0-100.0); MEAN PLATELET VOLUME 9.9 fL (7.4-10.4); MONOCYTES 7.2 % (2-11); NEUTROPHILS 61.4 % (40-80); PLATELET COUNT 193 10x3/uL (130-400); RBC 3.87 10x6/uL (4.00-5.40); RDW 13.2 % (11.5-14.5); WBC 5.4 10x3/uL (4.8-10.8)
[2018-06-22 19:46] LABS: ALBUMIN 3.4 g/dL (3.4-5.0); ALKALINE PHOSPHATASE 58 U/L (46-116); ALT (SGPT) 22 U/L (10-68); AMYLASE - SERUM 36 U/L (25-115); BILIRUBIN - TOTAL 0.23 mg/dL (0.2-1.3); CALC OSMOLALITY 286 mosm/kg (275-300); CALCIUM 8.3 mg/dL (8.5-10.1); CARBON DIOXIDE 26.8 mmol/L (21.0-32.0); CHLORIDE - SERUM 108 mmol/L (98-107); CREATININE - SERUM 0.7 mg/dL (0.6-1.3); GLUCOSE 95 mg/dL (74-106); POTASSIUM - SERUM 3.7 mmol/L (3.5-5.1); PROTEIN - SERUM 6.7 g/dL (6.4-8.2); SODIUM 144 mmol/L (136-145); UREA NITROGEN 13 mg/dL (7-18); eGFR NON AFRICAN AMERICAN > 90 mL/min (90-120)
[2018-06-22 22:06] VITALS: BP 122/76
== END 2018-06-22 22:06 | disposition home or self-care (01) ==
LOC: D.ER 18:08
PROVIDERS: Family Medicine
DX: R10.9 Unspecified abdominal pain (principal)

== ENCOUNTER 2018-08-01 12:18 | Inpatient (IN) | payer MEDICAID ==
[~2018-08-01] VITALS: Ht 157.5 cm; Wt 90.0 kg
[~2018-08-01 12:18] MED LIST changes: +COZAAR50 MG PO; +NEXIUM40 MG PO; +PROVENTIL/2.5 MG/3 M INH; +TORADOL10 MG PO; +ULTRAM50 MG PO
[2018-08-05] MEDS ORDERED: ZOLOFT50 MG PO (13:19)
[2018-08-05] MEDS ORDERED: TYLENOL #4 W/CO1 TAB PO (13:20)
[2018-08-05 14:30] LABS: BASOPHILS 0.2 % (0-2); EOSINOPHILS 1.1 % (0-7); HEMATOCRIT 33.1 % (36.0-48.0); HEMOGLOBIN 11.1 g/dL (12-16); IMMATURE GRANULOCYTES 0.2 % (0-5); LYMPHOCYTES 37.7 % (15-50); MCH 29.8 pg (26.0-34.0); MCHC 33.5 g/dL (31.0-37.0); MEAN PLATELET VOLUME 10.4 fL (7.4-10.4); MONOCYTES 6.7 % (2-11); NEUTROPHILS 54.1 % (40-80); PLATELET COUNT 183 10x3/uL (130-400); RBC 3.72 10x6/uL (4.00-5.40); WBC 6.1 10x3/uL (4.8-10.8)
[2018-08-05 14:38] LABS: CALC OSMOLALITY 281 mosm/kg (275-300); CALCIUM 8.5 mg/dL (8.5-10.1); CARBON DIOXIDE 29.3 mmol/L (21.0-32.0); CHLORIDE - SERUM 105 mmol/L (98-107); CREATININE - SERUM 0.7 mg/dL (0.6-1.3); GLUCOSE 108 mg/dL (74-106); POTASSIUM - SERUM 4.1 mmol/L (3.5-5.1); SODIUM 141 mmol/L (136-145); UREA NITROGEN 12 mg/dL (7-18); eGFR NON AFRICAN AMERICAN > 90 mL/min (90-120)
[2018-08-10] VITALS (14 sets, daily range): BP systolic 95–130; BP diastolic 53–81; Ht 157.5 cm; Wt 90.0 kg
[2018-08-10 06:03] LABS: HCG URINE NEGATIVE (NEGATIVE)
--- NOTE | 2018-08-10 07:05 | NUR ---
DR. BOGGS NOTIFIED AND REVIEWED PATIENT'S BEHAVIOR AND ASSESSMENT RESULTS. PATIENT IS A LOW RISK DR. BOGGS. DR. BOGGS STATED TO GIVE RESOURCES TO PATIENT AT TIME OF DISCHARGE. NO FURTHER ORDERS AT THIS TIME. RESOURCES REVIEWED WITH PATIENT AND SHE VERBALIZED UNDERSTANDING.
--- NOTE | 2018-08-10 11:05 | NUR ---
received pt to labor and delivery from recovery room post total abd hyst by dr. brown. pt has large white dressing over incision to abdomen, c/d/i. abdomen palpates soft. pt is resting with eyes closed, awakens when spoken to. resp even and ul. pt has scd's on, connected to pump. arevalo cath in place draining light yellow urine, with 40 ml's noted in urometer, and 350 ml's noted in arevalo bag upon arrival. denies sob, nausea, or difficulty breathing. iv infusing lr at moderate rate, off pump. see emar for all meds adm by this rn. no redness or swelling noted to iv site. pt's family to room. see flowsheet for assessment. srup x2, call light and phone within reach.
[2018-08-10] MEDS ORDERED: HYDROCODON-ACE1 EA10 PO (12:25)
--- NOTE | 2018-08-10 12:32 | NUR ---
lr 1000 ml fluid bolus completed. lr 1000 ml set on pump to infuse at 150 ml/hr. pt is awake and talking. pt rating pain as 8/10 to incisional area. pt denies sob, nausea, or difficulty breathing. pt wishes to rest at this time. srup x2, call light and phone. sig other at bedside.
--- NOTE | 2018-08-10 13:45 | NUR ---
pt calls out carbon blocks press operator light and requests to sit up more in the bed. assisted pt with repositioning, with hob elevated to 30 degrees. pt performs coughing and deep breathing exercises. incentive spirometer explained to pt and pt uses this well, x3. abdomen continues to palpate soft. incision has 1 inch area of bright red drainage underneath it in the lower left side, area marked. ice pack placed over gown to incision. arevalo cath continues to drain light clear yellow urine. pt continues to use dilaudid human service technician. srup x2, call light and phone within reach. sig other at bedside. pt reminded of npo status, and future lab work. pt rating pain to incisonal area as 5/10, states "it diogenes aches, but it's not real bad right now." human service technician button within reach.
--- NOTE | 2018-08-10 16:00 | NUR ---
pt calls nurse to room, assisted pt in repositioning to right side. pt moving very well. pt's abdomen palpates soft. new ice pack placed over gown to incision. area of red drainage on dressing same size as before, otherwise dry and intact. pt awake and laughing and talking with nurse. plan of care discussed with pt. pt rating pain as 5/10 to incisional area. arevalo cath continues to drain yellow urine, see i/o flowsheet. pt denies nausea, dizziness, sob, or difficulty breathing. sr up x2, call light and phone within reach.
--- NOTE | 2018-08-10 16:15 | NUR ---
dr. brown to pt's room to discuss plan of care. md explains to pt that she may have ativan iv q8 hrs prn, pt may have clear liquid diet for supper, and advance in the morning, md plans to d/c arevalo, and md plans to start toradol in the morning. output reported to md while in room.
[2018-08-10 17:09] LABS: BASOPHILS 0 % (0-2); EOSINOPHILS 0 % (0-7); HEMATOCRIT 29.9 % (36.0-48.0); IMMATURE GRANULOCYTES 0.1 % (0-5); LYMPHOCYTES 5.2 % (15-50); MCH 29.4 pg (26.0-34.0); MCHC 33.4 g/dL (31.0-37.0); MCV 87.9 fL (80.0-100.0); MEAN PLATELET VOLUME 10.2 fL (7.4-10.4); MONOCYTES 4.4 % (2-11); NEUTROPHILS 90.3 % (40-80); PLATELET COUNT 153 10x3/uL (130-400); RDW 13.1 % (11.5-14.5); WBC 10.3 10x3/uL (4.8-10.8)
[2018-08-10 17:36] LABS: CALC OSMOLALITY 276 mosm/kg (275-300); CALCIUM 7.9 mg/dL (8.5-10.1); CARBON DIOXIDE 29.3 mmol/L (21.0-32.0); CHLORIDE - SERUM 103 mmol/L (98-107); CREATININE - SERUM 0.6 mg/dL (0.6-1.3); GLUCOSE 133 mg/dL (74-106); POTASSIUM - SERUM 4.5 mmol/L (3.5-5.1); SODIUM 138 mmol/L (136-145); UREA NITROGEN 9 mg/dL (7-18); eGFR NON AFRICAN AMERICAN > 90 mL/min (90-120)
--- NOTE | 2018-08-10 18:00 | NUR ---
to pt's room, pt is resting with eyes closed, resp even and ul at 16. pt awakened, pt informed O2 sat is 89-92% on room while sleeping. pt awake and breathing deeply. O2 2 liters NC applied. O2 sat now 98-100%.
--- NOTE | 2018-08-10 19:05 | NUR ---
report given to 7 p shift. pt is resting with eyes closed.
--- NOTE | 2018-08-10 19:10 | NUR ---
REPORT RECEIVED FROM RENU MOJICA.
--- NOTE | 2018-08-10 19:20 | NUR ---
PATIENT LYING QUIETLY IN BED WITH EYES CLOSED. EASILY AROUSED. ASSESSMENT DONE AT THIS TIME. RESPIRATIONS AT EASE. LUNG SOUNDS CLEAR IN ALL LINDER. HEART REGULAR RATE AND RHYTHM. ABDOMEN SOFT AND TENDER TO TOUCH. DRESSING NOTED TO ABDOMEN. SMALL AMOUNT OF DRAINAGE NOTED. BOWEL SOUNDS PRESENT IN ALL QUADRANTS. NO EDEMA NOTED IN EXTREMITIES. SCD'S ON AND WORKING. PATIENT STATES PAIN 2 OUT OF 10. EDUCATED PATIENT ON COUGHING AND DEEP BREATHING WELL USE OF INCENTIVE SPIROMETER. PATIENT MOVES SELF IN BED. DENIES ANY NEEDS OR CONCERNS. BED IN LOWEST POSITION, SIDE RAILS UP X 2, C/L AND WATER WITHIN REACH.
--- NOTE | 2018-08-10 21:00 | NUR ---
PATIENT LYING QUIETLY IN BED WITH EYES CLOSED. EASILY AROUSED. STATES PAIN 3 OUT OF 10. PATIENT MOVED SELF TO R SIDE. PATIENT COUGHING AND DEEP BREATHING. DENIES ANY NEEDS AT THIS TIME. BED IN LOWEST POSITION, SIDE RAILS UP X 2, C/L AND WATER WITHIN REACH.
--- NOTE | 2018-08-10 23:00 | NUR ---
PATIENT SITTING UP IN BED. STATES PAIN 2 OUT OF 10. DENIES ANY NEEDS AT THIS TIME. PATIENT REPOSITIONED SELF TO L SIDE. PATIENT COUGHING AND DEEP BREATHING. BED IN LOWEST POSITION, SIDE RAILS UP X 2, C/L AND AIRWAY CONTROLLER BUTTON WITHIN REACH.
[2018-08-11] VITALS (7 sets, daily range): BP systolic 99–127; BP diastolic 55–76
--- NOTE | 2018-08-11 00:03 | NUR ---
PATIENT LYING QUIETLY IN BED WITH EYES CLOSED. RESPIRATIONS AT EASE. NO SIGNS OF DISTRESS NOTED. BED IN LOWEST POSITION, SIDE RAILS UP X 2, C/L, WATER AND SOFA INSPECTOR BUTTON WITHIN REACH.
--- NOTE | 2018-08-11 01:31 | NUR ---
PATIENT SITTING UP IN BED. STATES PAIN 6 OUT OF 10. LACTATION CONSULTANT SYRINGE CHANGED AT THIS TIME. SEE MAR. NATALIE MOJICA SECOND WITNESS. PATIENT PUSHES LACTATION CONSULTANT BUTTON AT THIS TIME. ICE PACK PLACED TO INCISION. PATIENT DENIES ANY FURTHER NEEDS. BED IN LOWEST POSITION, SIDE RAILS UP X 2, C/L, WATER, AND LACTATION CONSULTANT BUTTON WITHIN REACH.
--- NOTE | 2018-08-11 03:00 | NUR ---
PATIENT LYING QUIETLY IN BED WITH EYES CLOSED. RESPIRATIONS AT EASE. NO SIGNS OF DISTRESS NOTED. BED IN LOWEST POSITION, SIDE RAILS UP X 2, C/L, WATER, AND ORDERLY BUTTON WITHIN REACH.
--- NOTE | 2018-08-11 04:01 | NUR ---
PATIENT LYING QUIETLY IN BED WITH EYES CLOSED. RESPIRATIONS AT EASE. NO SIGNS OF DISTRESS NOTED. BED IN LOWEST POSTION, SIDE RAILS UP X 2, C/L, WATER, AND SCIENTIFIC INFORMATICS LEADER BUTTON WITHIN REACH.
--- NOTE | 2018-08-11 06:00 | NUR ---
PATIENT LYING QUIETLY IN BED WITH EYES CLOSED. RESPIRATIONS AT EASE. NO SIGNS OF DISTRESS NOTED. BED IN LOWEST POSITION, SIDE RAILS UP X 2, C/L, WATER, AND FIELD IRRIGATION WORKER BUTTON WITHIN REACH.
--- NOTE | 2018-08-11 07:00 | NUR ---
PATIENT SITTING UP IN BED. STATES PAIN 2 OUT OF 10. FAULKNER BAG EMPTIED AT THIS TIME. OBTAINED 2200 CC'S OF CLEAR YELLOW URINE. PATIENT DENIES ANY NEEDS AT THIS TIME. BED IN LOWEST POSTION, SIDE RAILS UP X 2, C/L, WATER, AND NURSING SPECIALIST WITHIN REACH.
--- NOTE | 2018-08-11 08:31 | NUR ---
ASSESSMENT DONE. AWAKE AND ALERT. VERBAL RESPONSES APPRO TO QUESTIONS. SUAREZ ON COMMAND. VS DONE. DENIES PASSING FLATUS YET. O2 PER NC.
--- NOTE | 2018-08-11 09:12 | NUR ---
MEDS GIVEN ORDERED. IV CHANGED TO SALINE LOCK- FLUSHED WITH 10CC/NS. O2 SAT 99%. O2 NC REMOVED AT THIS TIME. FAULKNER CATH REMOVED WITH 650CC URINE IN BAG.
--- NOTE | 2018-08-11 09:52 | NUR ---
RATES PAIN A 6 ON SCALE OF 0-10. MED GIVEN FOR PAIN.
--- NOTE | 2018-08-11 09:56 | NUR ---
O2 SAT 94%
--- NOTE | 2018-08-11 11:10 | NUR ---
RINGS CALL LIGHT- REQUESTING TO GET UP.PT AMBULATORY TO BATHROOM. TOLERATED WELL. UNABLE TO VOID- STATES THAT DOES NOT FEEL LIKE SHE NEEDS TO VOID BUT REQUESTING TO WALK AROUND.
--- NOTE | 2018-08-11 11:21 | NUR ---
DR CORDON HERE TO SEE PT.
--- NOTE | 2018-08-11 12:30 | NUR ---
AMBULATORY TO BATHROOM- TOLERATED WELL. VOIDED 100CC CLEARISH URINE. RETURNS TO BED.
--- NOTE | 2018-08-11 12:38 | NUR ---
STATES WANTS TO SIT ON SIDE OF BED FOR A BIT. REG DIET SERVED. CALL LIGHT IN REACH.
--- NOTE | 2018-08-11 13:56 | NUR ---
RINGS CALL LIGHT- STATES WOULD LIKE PAIN MEDICATION- RATES PAIN AN 8 ON SCALE OF 0-10. STATES PAIN IS ABD AND SOME IN BACK. MED GIVEN. PT STATES THAT ALSO WANTS TO SHOWER.
--- NOTE | 2018-08-11 14:13 | NUR ---
VOIDED 200CC IN CONTAINER. SHOWER DONE AND LINENS CHANGED. ABD DRESSING REMOVED AFTER SHOWER. SUMMER INTACT AND INCISION APPEARANCE WNL. JACQUELINE PAD PLACED VERTICALLY AND ABD BINDER REPLACED. PT INSTRUCTED ON CARE OF INCISION.
--- NOTE | 2018-08-11 15:04 | NUR ---
UP TO BATHROOM- VOIDED 250CC URINE.
--- NOTE | 2018-08-11 15:05 | NUR ---
RETURNS TO BED. WHEN ASK ABOUT PAIN REASSESSMENT SHE RATES PAIN A 7-8. STATES HAS SOME SHARP PAINS AT TIMES.
--- NOTE | 2018-08-11 16:00 | NUR ---
UP TO BATHROOM NEEDED. VOIDED 300CC INTO CONTAINER.
--- NOTE | 2018-08-11 16:57 | NUR ---
NURSING SUPERVISIOR CALLS THIS AM AND REPORTS THAT THE PT NEEDS A SUICIDE RISK SCREENING DONE. PER PROCESS INTERVENTION IT APPEARS THAT SCICIDE RISK ASSESSMENT HAS BEEN COMPLETED. PT STATES THAT SOMEONE CAME AND TALKED TO HER YESTERDAY CONCERNING THIS. RISK SCREENING AGAIN DONE AT THIS TIME PER REQUEST OF AM SUPERVISIOR AND NOTIFED HUMBERTO FRENCH RN- SUPERVISIOR ON AT THIS TIME. PT DENIES ANY THOUGHTS OF HARMING SELF.
--- NOTE | 2018-08-11 18:00 | NUR ---
AMBULATING IN [facility]. [facility].
--- NOTE | 2018-08-11 18:16 | NUR ---
RATES PAIN A 7 ON SCALE OF 0-10. PAIN MED GIVEN. PT DENIES PASSING GAS YET. PAIN MED GIVEN.
--- NOTE | 2018-08-11 18:35 | NUR ---
RINGS CALL LIGHT- STATES THAT SHE HAS PASSED GAS.
--- NOTE | 2018-08-11 19:20 | NUR ---
PT. LYING ON RT SIDE SLEEPING. RESPIRATIONS UNLABORED.
--- NOTE | 2018-08-11 19:50 | NUR ---
PT UP TO BATHROOM AND VOIDED 200CC. PASSING FLATUS. BACK TO BED.
--- NOTE | 2018-08-11 19:57 | NUR ---
VITAL SIGNS OBTAINED. BREATH SOUNDS CLEAR AND BOWEL SOUNDS AUDIBLE. PT. AWAKENED. PT. STATES SHE SLEEPS OFTEN BUT AWAKENS EASILY. SALINELOCK NOTED IN RT. HAND. NO REDNESS NOR EDEMA NOTED. ABD INCISION WITHOUT REDNESS NOR DRAINAGE. LYING ON BACK WITH HOB AT 45 DEGREES. ABD. BINDER NOTED IN PLACE. NO EDEMA OF LOWER EXTREMITIES NOTED. RATES PAIN A 5 OF 10 ON PAIN SCALE. STATES SHE ARRANGED FOR ASSISTANCE WHEN SHE GOES HOME.
--- NOTE | 2018-08-11 21:04 | NUR ---
PT. C/O FEELING COLD. ROOM TEMP. COLD AND THERMOSTAT ADJUSTED. PT. COVERED WITH WARM BLANKET.
--- NOTE | 2018-08-11 21:09 | NUR ---
PT. AWAKENED FOR SCHEDULED MEDS.
--- NOTE | 2018-08-11 21:15 | NUR ---
SCDS APPLIED. CAUTIONED PT. TO REMEMBER THAT THE SCDS ARE ON PRIOR TO GETTING UP TO THE BATHROOM. PT.STATES UNDERSTANDING. TALKATIVE WHEN AWAKE.
--- NOTE | 2018-08-11 22:20 | NUR ---
LYING ON RT SIDE WITH EYES CLOSED. RESPIRATIONS UNLABORED. DOES NOT AROUSE TO THIS NURSE OPENING ROOM DOOR.
--- NOTE | 2018-08-11 23:22 | NUR ---
PT. AWAKENED FOR VITAL SIGNS. PT. COMMENTS THAT SHE IS TOO WARM. PT. NOTED TO BE UNDER 4 BLANKETS. BLANKETS REMOVED. VITAL SIGNS OBTAINED. PT. REPORTS THAT SHE NEEDS TO GET UP TO BATHROOM. SCDS OFF AND UP TO BATHROOM.
--- NOTE | 2018-08-11 23:23 | NUR ---
ENCOURAGED PT. TO COUGH AND DEEP BREATHE. HANDED INCENTIVE SPIROMETER TO PT. AND ASKED HER TO USE. POOR EFFORT WITH FIRST TWO ATTTEMPTS AND WITH ENCOURAGEMENT, BETTER EFFORT ON THIRD ATTEMPT.
--- NOTE | 2018-08-11 23:29 | NUR ---
TO BATHROOM. PASSED LARGE AMT. FLATUS AND VOIDED. C/O HEADACHE.
--- NOTE | 2018-08-11 23:34 | NUR ---
UP WALKING IN HALLWAY. THIS NURSE WALKED WITH PT. BURPING FREQUENTLY.
--- NOTE | 2018-08-11 23:36 | NUR ---
BACK TO ROOM. INTO BED. SCDS RECONNECTED AND PUMP FUNCTIONAL. ALL COVERS REMOVED FROM BED EXCEPT ONE LIGHT BLANKET. PT. AGREEABLE. TURNED SELF TO LT SIDE AND STATED THAT SHE WAS GOING TO LIE ON THAT SIDE FOR A WHILE.
--- NOTE | 2018-08-12 00:48 | NUR ---
AWAKENED FOR SCHEDULED MED ADMINISTRATION. AWAKE ONLY BRIEF PERIODS.
--- NOTE | 2018-08-12 00:58 | NUR ---
DR. CORDON CALLED AND INFORMED OF PT'S TEMPERATURE ELEVATION. INQUIRES ABOUT PT'S ACTIVITY AND HOW MUCH SHE IS OUT OF BED. INFORMATION PROVIDED. ORDER RECEIVED.
--- NOTE | 2018-08-12 01:30 | NUR ---
IV SALINE FLUSHED. PT ENCOURAGED TO WALK IN HALLWAY AGAIN. USED INCENTIVE SPIROMENTER AND ABLE TO ACHIEVE UP TO 1500 WITH ENCOURAGEMENT. UP TO BATHROOM TO VOID AND THEN TO WALK IN HALLWAY.
--- NOTE | 2018-08-12 01:35 | NUR ---
ASSISTED WITH PLACING NON SKID SOCKS TO BLE. UP TO AMBULATE IN [place]. STEADY GAIT NOTED. AMBULATED X2 ON UNIT. BACK TO ROOM. SCD'S TO BLE. ICE WATER AND GRAPE JUICE PROVIDED PER REQUEST. STATES THAT SHE FEELS HOT, ROOM TEMP DECREASED PER PT REQUEST. BED IN LOW POSITION WITH UPPER SIDE RAILS RAISED X2. CALL LIGHT AND PHONE WITHIN REACH. WILL CONTINUE TO MONITOR.
--- NOTE | 2018-08-12 03:36 | NUR ---
PT.LYING ON BACK WITH EYES CLOSED. RESPIRATIONS UNLABORED.
--- NOTE | 2018-08-12 03:57 | NUR ---
AWAKENED FOR SCHEDULED MED. BACK TO SLEEP QUICKLY.
--- NOTE | 2018-08-12 04:45 | NUR ---
PT. GETTING UP TO BATHROOM. TEMP. CHECKED. SCDS DISCONNECTED.
--- NOTE | 2018-08-12 04:51 | NUR ---
AMBULATING IN HALLWAY. GAIT STEADY. WALKING BEHIND WHEELCHAIR FOR SUPPORT.
[2018-08-12 08:38] VITALS: BP 96/52
--- NOTE | 2018-08-12 08:40 | NUR ---
to pt's room, am assessment completed. see flowsheet. pt has vertical incision with myah, c/d/i. no redness or swelling noted to incision, no drainage. pt denies sob, dizzines, or difficulty breathing. discharge plannign discussed with pt.
--- NOTE | 2018-08-12 08:55 | NUR ---
dr. brown on unit, report given to of pt's montse arroyo. dr. brown to room to speak with pt.
--- NOTE | 2018-08-12 08:58 | NUR ---
PT AT DESK. REQUESTING TO TAKE NEXIUM-HOME MED THIS AM. DR CORDON ON UNIT. NOTIFIED OF PT REQUEST. ORDER RECEIVED.
--- NOTE | 2018-08-12 09:14 | OP ---
PATIENT NAME: CRUZ SANCHEZ MEDICAL RECORD: [id number] :71 LOCATION:[facility] ADMISSION DATE:08/10/18 SURGEON: GERALDO CORDON MD DATE OF OPERATION: 08/10/2018 PREOPERATIVE DIAGNOSES: 1. Dysfunctional uterine bleeding. 2. Dysmenorrhea. 3. Pelvic pain. POSTOPERATIVE DIAGNOSES: 1. Dysfunctional uterine bleeding. 2. Dysmenorrhea. 3. Pelvic pain. 4. Pelvic adhesions. PROCEDURE: 1. Exploratory laparotomy. 2. Lysis of adhesions. 3. Total abdominal hysterectomy. 4. Bilateral salpingectomy. 5. Left oophorectomy. SURGEON: Geraldo Cordon MD BARREL RAISER HELPER: Xiang Cool/Tj Freitas CRNA. ANESTHETIC: General. FINDINGS: The omentum was adhesed to the right side of the uterus down to the lower segment on the right. The right ovary was adhesed to the body of the uterus. Bladder is adhesed to the lower uterine segments. Ovaries appear unremarkable as well as the tubes. Uterus is slightly enlarged. What was palpated of the abdominal anatomy was unremarkable. SPECIMENS REMOVED: Uterus, tubes, left ovary, and cervix. SPECIMEN DISPOSITION: Pathology. ESTIMATED BLOOD LOSS: Less than or equal to 550 cc. FLUIDS: 1500 cc of lactated Ringer's. URINE OUTPUT: 150 cc. COMPLICATIONS: None. DRAINS: Jennings to gravity. INDICATIONS: The patient is a 43-year-old female with painful heavy periods. The patient also has pelvic pain. Previous diagnostic laparoscopy with findings suggestive of adenomyosis and adhesive disease. The patient is consented for exploratory laparotomy, total abdominal hysterectomy, bilateral salpingectomy, and left oophorectomy. OPERATIVE REPORT [id number] CRUZ SANCHEZ DESCRIPTION OF PROCEDURE: After informed consent was assured, the patient was taken to operating room where anesthetic was obtained. The patient is now prepped and draped in the usual sterile fashion and then an incision was made over the old midline scar. This incision was taken down to the layer of the fascia with Bovie cautery after initially incising the skin with scalpel. The fascia is opened in the mid abdomen and the fascial opening extended superiorly with Bovie cautery with the fascia being elevated with tonsils. During this, a portion of the small bowel was burned and 3 imbricating vertical mattress stitches were placed to reinforce this area of thermal damage. The fascial incisions extended to the umbilicus and then below to the pubic symphysis. The O'Ramakrishna-O'Hicks retractor was inserted. Bowel was packed free and an upper blade placed. The left cornual region was grasped with a Jina clamp and it is elevated. Using both Bovie cautery and Metzenbaum scissors, the adhesions of the omentum and the right ovary to the uterus were taken down. Attention was directed to the right side where the right round ligament was elevated with Negro clamp and stick tied. The round ligament and the broad ligament was entered with Bovie cautery. Dissection was carried down to the level of the lower uterine segment and bladder flaps developed to the midline. To facilitate bladder flap development both sharp dissection as well as Bovie cautery was used. The right tube is now removed. This is performed by placing Jina clamps from the lateral edge medially to the attachment to the uterus. Once the clamps have been applied, the tube was removed and Jina stitches applied for hemostasis. The connective tissue was dissected free of the right vascular bundle. The right vascular bundle was now clamped with a Jina clamp at the level of the internal os and a straight clamp placed above this. The pedicles mobilized with Ventura scissors. Jina stitches applied for hemostasis at this vascular bundle. Attention was now directed to the left side. The broad ligament was entered in similar fashion and a window developed underneath the left ovary and tube. Through this, sequential clamps were placed and the pedicle was developed sharply. A free tie was placed and a oyug-pfu-ang stitch to obtain hemostasis at the infundibulopelvic ligament. Dissection now continues down the left side of the uterus and the left vascular bundle was exposed. This bundle was doubly clamped and the pedicle mobilized with scissors. A Jina stitch was applied here for hemostasis. The uterus was not removed with a Bovie cautery and Ke's scissors. The cervical stump was grasped with a Hal tenaculum and a Kelly clamp. The bladder was densely adhesed to the cervix and these adhesions were taken down sharply with some blunt dissection. Once the bladder had been mobilized out of the area of operative field, straight clamps were used to develop pedicles of the cardinal ligaments. These pedicles were developed with a scalpel and tied with Jina stitches. Once the level of the uterosacral ligaments reached, Jina clamps were placed over the top of the superior aspect of the vagina and the cervical stump was now removed with Ke scissors. Interrupted uzwaby-[id number] stitches were applied across the vaginal cuff for hemostasis. Dissection of the right side has moved inferiorly of the apex of the cuff and bleeding here was controlled with 1 interrupted stitch. Bladder edge continues to bleed. Pressure was held for 3 minutes with decrease in bleeding. Maria Fernanda was placed in the lower pelvis with good results. Adequate hemostasis has been achieved and initial sponge count was correct. The fascia was now closed with a mass closure. This begins with a PDS stitch inferiorly and moving to mid abdomen. The PDS looped stitch was now placed at the apex superiorly and taken down to the mid abdomen. Both stitches were tied independently. Subcutaneous tissues were irrigated, bleeding vessels cauterized, and subcutaneous fat reapproximated with plain gut stitch. Skin was reapproximated with myah. Sterile dressing and an abdominal binder placed. Sponge, lap, needle count, and instrument count OPERATIVE REPORT [id number] CRUZ SANCHEZ are correct times 2 at the close. TRANSINT:[id number] Voice Confirmation ID: [id number] DOCUMENT ID: [id number] GERALDO CORDON MD at 0914 CC: [id number] DICTATION DATE: 08/10/18 1015 GRAPHICS SOFTWARE ENGINEER: 08/10/18 1241 ADM IN [facility] [address] [place] [address]
[2018-08-12] MEDS ORDERED: NEURONTIN 300300 MG PO (09:54)
[2018-08-12] MEDS ORDERED: MOBIC7.5 MG PO (09:55)
[2018-08-12] MEDS ORDERED: PERCOCET 7.5/321 TAB PO (09:56)
--- NOTE | 2018-08-12 11:45 | NUR ---
iv cath dc'd intact.
--- NOTE | 2018-08-12 11:45 | NUR ---
discharge instructions explained to pt, copies provided for pt. prescriptions given to pt. pt asking how she is supposed to get her walker that dr. brown said he would write for her. explained to pt i will call to find out.
--- NOTE | 2018-08-12 12:00 | NUR ---
phone call made to dr. keivn md will write script for pt.
--- NOTE | 2018-08-12 12:15 | NUR ---
dr. styles on unit, prescription written for walker, dx status post ex lap/obesity.
--- NOTE | 2018-08-12 13:00 | NUR ---
pt taken out by wheelchair in stable condition, to private vehicle.
== END 2018-08-12 13:00 | disposition home or self-care (01) | DRG 743 ==
LOC: D.SDCHOLD 08-08 07:30 → D.LD 08-10 10:25
PROVIDERS: ADMIT Obstetrics & Gynecology; ATTEND Obstetrics & Gynecology
PROC: 0UT10ZZ Resection of Left Ovary, Open Approach (ICD-10-PCS; 2018-08-10)
PROC: 0UT90ZZ Resection of Uterus, Open Approach (ICD-10-PCS; principal; 2018-08-10 07:00)
PROC: 0UT70ZZ Resection of Bilateral Fallopian Tubes, Open Approach (ICD-10-PCS; 2018-08-10 07:00)
DX: N93.8 Other specified abnormal uterine and vaginal bleeding (principal); N94.6 Dysmenorrhea, unspecified; R10.2 Pelvic and perineal pain

== ENCOUNTER 2018-08-12 23:21 | Inpatient (IN) | payer MEDICAID ==
[~2018-08-12] VITALS: Ht 157.5 cm; Wt 90.0 kg
[~2018-08-12 23:21] MED LIST changes: +HYDROCODON-ACE1 EA10 PO; +MOBIC7.5 MG PO; +NEURONTIN 300300 MG PO; +PERCOCET 7.5/321 TAB PO; +TYLENOL #4 W/CO1 TAB PO
--- NOTE | 2018-08-12 23:28 | NUR ---
ARRIVED ON FLOOR VIA WC WITH COMPANY AT SIDE ESCORTED BY ADMISSIONS. ORIENTED TO ROOM AND CALL LIGHT. ASSESSMENT AND HISTORY PER FLOW SHEET.
[2018-08-13] VITALS: BP 102/62
[2018-08-13 00:07] VITALS: BP 102/62; Ht 157.5 cm; Wt 90.0 kg
--- NOTE | 2018-08-13 00:30 | NUR ---
IV SITED TO RIGHT FA. 20 GAUGE X2 STICKS WITH GOOD BLOOD RETURN NOTED.
[2018-08-13 00:34] LABS: BASOPHILS 0.1 % (0-2); EOSINOPHILS 2.9 % (0-7); HEMATOCRIT 22.8 % (36.0-48.0); HEMOGLOBIN 7.6 g/dL (12-16); IMMATURE GRANULOCYTES 0.1 % (0-5); LYMPHOCYTES 23.9 % (15-50); MCH 29.2 pg (26.0-34.0); MCHC 33.3 g/dL (31.0-37.0); MCV 87.7 fL (80.0-100.0); MEAN PLATELET VOLUME 9.9 fL (7.4-10.4); MONOCYTES 7.4 % (2-11); NEUTROPHILS 65.6 % (40-80); PLATELET COUNT 151 10x3/uL (130-400); RDW 13.2 % (11.5-14.5)
[2018-08-13 00:55] LABS: ALBUMIN 2.5 g/dL (3.4-5.0); ALKALINE PHOSPHATASE 53 U/L (46-116); ALT (SGPT) 22 U/L (10-68); BILIRUBIN - TOTAL 0.19 mg/dL (0.2-1.3); CALC OSMOLALITY 282 mosm/kg (275-300); CALCIUM 7.9 mg/dL (8.5-10.1); CARBON DIOXIDE 31.6 mmol/L (21.0-32.0); CHLORIDE - SERUM 106 mmol/L (98-107); CREATININE - SERUM 0.7 mg/dL (0.6-1.3); GLUCOSE 117 mg/dL (74-106); POTASSIUM - SERUM 3.1 mmol/L (3.5-5.1); PROTEIN - SERUM 5.4 g/dL (6.4-8.2); SODIUM 142 mmol/L (136-145); UREA NITROGEN 9 mg/dL (7-18); eGFR NON AFRICAN AMERICAN > 90 mL/min (90-120)
--- NOTE | 2018-08-13 02:11 | NUR ---
SPOKE WITH DR CORDON ABOUT COMPUTER FLAGGING GENTAMICIN AN ALLERGY DUE TO PT ALLERGY OF BACRTIM/SULFA. TOLD TO GIVE AND TO WATCH CLOSELY AND TO GIVE BENADRYL 50MG IV FOR REACTION OR FOR SLEEP.
[2018-08-13 04:00] VITALS: BP 94/49
--- NOTE | 2018-08-13 08:32 | NUR ---
PT ALERT X 4. BREATH SOUNDS CLEAR BILAT. MIDLINE INCISION TO ABDOMEN, SUMMER, ABDOMINAL BINDER IN PLACE. IV TO RIGHT FOREARM, PATENT, DRESSING CDI. PT REPORTING PAIN OF 7/10, NO MEDS DUE AT THIS TIME, WILL MONITOR. BED LOW, CALL LIGHT IN REACH. NO OTHER NEEDS AT THIS TIME.
[2018-08-13 08:47] VITALS: BP 109/53
[2018-08-13 12:34] VITALS: BP 116/62
--- NOTE | 2018-08-13 15:57 | NUR ---
20G IV STARTED TO LEFT HAND, 1 STICK. HUNG FIRST UNIT OF PRBC. WILL MONITOR.
--- NOTE | 2018-08-13 19:30 | NUR ---
PT SITTING UP IN BED WITHOUT DISTRESS, ALERT AND ORIENTED. STATES PAIN IN ABD 04/17. MIDLINE INCISION AND DRESSING CDI. ABD BINDER IN PLACE. ENCOURAGED TO USE PILLOW TO SPLINT ABD IF COUGHING OR FEELING NAUSEAS. IV RIGHT FA INFUSING NS @ 115 AND BLOOD INFUSING TO LEFT HAND. VSS. DENIES OTHER NEEDS AT THIS TIME. CL IN REACH, WILL CTM
[2018-08-13 19:54] VITALS: BP 111/57; BP 88/49
--- NOTE | 2018-08-13 20:40 | NUR ---
PRBC COMPLETE AT THIS TIME. VSS
[2018-08-14] VITALS: BP 101/74
[2018-08-14 04:00] VITALS: BP 102/67
[2018-08-14 06:13] LABS: BASOPHILS 0.2 % (0-2); EOSINOPHILS 5.8 % (0-7); HEMATOCRIT 26.7 % (36.0-48.0); IMMATURE GRANULOCYTES 0.4 % (0-5); LYMPHOCYTES 24.9 % (15-50); MCH 30.4 pg (26.0-34.0); MCHC 34.5 g/dL (31.0-37.0); MCV 88.1 fL (80.0-100.0); MEAN PLATELET VOLUME 10.1 fL (7.4-10.4); MONOCYTES 7.6 % (2-11); NEUTROPHILS 61.1 % (40-80); PLATELET COUNT 145 10x3/uL (130-400); RBC 3.03 10x6/uL (4.00-5.40); RDW 14.1 % (11.5-14.5)
[2018-08-14 06:22] LABS: HEMOGLOBIN 9.2 g/dL (12-16); WBC 4.5 10x3/uL (4.8-10.8)
--- NOTE | 2018-08-14 09:25 | NUR ---
PT ALERT X 4. CRYING AND ANXIOUS, MEDICATED PER ORDERS, WILL MONITOR. BREATH SOUNDS CLEAR BILAT. PT REPORTING NAUSEA, MEDICATED PER ORDERS, WILL MONITOR. STATES PAIN IS NOT BAD TODAY. IV TO LEFT HAND, SALINE LOCKED. IV TO RIGHT FOREARM, PATENT, DRESSING CDI. BED LOW, CALL LIGHT IN REACH. NO OTHER NEEDS AT THIS TIME.
[2018-08-14 09:32] VITALS: BP 108/67
[2018-08-14] MEDS ORDERED: DIFLUCAN150 MG (12:13)
[2018-08-14] MEDS ORDERED: CIPRO500 MG PO (12:14)
[2018-08-14] MEDS ORDERED: FLAGYL500 MG PO (12:14)
--- NOTE | 2018-08-14 12:47 | NUR ---
DISCHARGE PAPERWORK SIGNED, ALL QUESTIONS ANSWERED. IV TO RIGHT FOREARM DC'D, IV TO LEFT HAND DC'D, TIPS INTACT. ESCORTED OUT WITH WHEELCHAIR.
== END 2018-08-14 12:48 | disposition home or self-care (01) | DRG 699 ==
LOC: D.MS 23:21
PROVIDERS: ADMIT Obstetrics & Gynecology; ATTEND Obstetrics & Gynecology
DX: N99.89 Other postprocedural complications and disorders of genitourinary system (principal); L03.315 Cellulitis of perineum; R50.82 Postprocedural fever; I10 Essential (primary) hypertension; K21.9 Gastro-esophageal reflux disease without esophagitis; D64.9 Anemia, unspecified

== ENCOUNTER 2018-08-29 16:58 | Emergency (ER) | payer MEDICAID ==
[~2018-08-29] VITALS: Ht 157.5 cm; Wt 86.8 kg
[~2018-08-29 16:58] MED LIST changes: +CIPRO500 MG PO; +DIFLUCAN150 MG; +FLAGYL500 MG PO
[2018-08-29 17:33] VITALS: Ht 157.5 cm; Wt 86.8 kg
[2018-08-29] MEDS ORDERED: NUVIGIL150 MG PO (17:38)
[2018-08-29] MEDS ORDERED: PHENERGAN25 M1 PO (17:39)
[2018-08-29] MEDS ORDERED: PROBIOTIC1 EAC1 PO (17:40)
[2018-08-29 18:36] LABS: BASOPHILS 0.4 % (0-2); EOSINOPHILS 1.2 % (0-7); HEMATOCRIT 35.7 % (36.0-48.0); HEMOGLOBIN 12.1 g/dL (12-16); IMMATURE GRANULOCYTES 0.1 % (0-5); LYMPHOCYTES 35.5 % (15-50); MCHC 33.9 g/dL (31.0-37.0); MCV 88.4 fL (80.0-100.0); MEAN PLATELET VOLUME 9.9 fL (7.4-10.4); MONOCYTES 6.3 % (2-11); NEUTROPHILS 56.5 % (40-80); RBC 4.04 10x6/uL (4.00-5.40); RDW 13.3 % (11.5-14.5); WBC 6.8 10x3/uL (4.8-10.8)
[2018-08-29 18:40] LABS: PLATELET COUNT 209 10x3/uL (130-400)
[2018-08-29 18:55] LABS: ALBUMIN 3.7 g/dL (3.4-5.0); ALKALINE PHOSPHATASE 64 U/L (46-116); ALT (SGPT) 15 U/L (10-68); BILIRUBIN - TOTAL 0.25 mg/dL (0.2-1.3); CALC OSMOLALITY 276 mosm/kg (275-300); CALCIUM 8.6 mg/dL (8.5-10.1); CARBON DIOXIDE 27.8 mmol/L (21.0-32.0); CHLORIDE - SERUM 104 mmol/L (98-107); CREATININE - SERUM 0.7 mg/dL (0.6-1.3); GLUCOSE 86 mg/dL (74-106); POTASSIUM - SERUM 4.1 mmol/L (3.5-5.1); SODIUM 140 mmol/L (136-145); UREA NITROGEN 11 mg/dL (7-18); eGFR NON AFRICAN AMERICAN > 90 mL/min (90-120)
[2018-08-29 19:00] LABS: AMYLASE - SERUM 40 U/L (25-115); LIPASE 108 U/L (73-393)
[2018-08-29 19:01] LABS: TROPONIN-I < 0.017 ng/mL (0.000-0.060)
[2018-08-29 20:01] LABS: APPEARANCE CLEAR (CLEAR); COLOR YELLOW (YELLOW); NITRITE NEGATIVE (NEGATIVE); PROTEIN NEGATIVE (NEGATIVE)
[2018-08-29 20:02] LABS: BILIRUBIN NEGATIVE (NEGATIVE); GLUCOSE NEGATIVE (NEGATIVE); KETONE NEGATIVE (NEGATIVE); UROBILINOGEN NORMAL (NORMAL)
[2018-08-29 20:04] LABS: BACTERIA FEW /hpf (NONE SEEN); EPITHELIAL CELLS 0-5 /hpf (0-5)
[2018-08-29] MEDS ORDERED: MACROBID100 MG PO (20:41)
[2018-08-29 21:04] VITALS: BP 118/65
== END 2018-08-29 21:04 | disposition home or self-care (01) ==
LOC: D.ER 16:58
PROVIDERS: Family Medicine
DX: N39.0 Urinary tract infection, site not specified (principal)

== ENCOUNTER → 2019-03-02 08:09 | Outpatient (CLI) | payer MEDICAID ==
[2018-08-29 17:33] VITALS: BMI 35.0
[~2019-03-02 08:09] MED LIST changes: +MACROBID100 MG PO; +NUVIGIL150 MG PO; +PHENERGAN25 M1 PO; +PROBIOTIC1 EAC1 PO
== END | disposition home or self-care (01) ==
LOC: D.RT 08:09
PROVIDERS: ATTEND Nurse Practitioner
DX: R05 Cough (principal)

== ENCOUNTER → 2019-05-24 09:05 | Outpatient (CLI) | payer MEDICAID ==
[2018-08-29 17:33] VITALS: BMI 35.0
== END | disposition home or self-care (01) ==
LOC: D.MRI 09:05
PROVIDERS: ATTEND Nurse Practitioner
DX: M54.2 Cervicalgia (principal)

== ENCOUNTER 2019-06-01 18:56 | Emergency (ER) | payer MEDICAID ==
[~2019-06-01] VITALS: Ht 157.5 cm; Wt 95.0 kg
[2019-06-01 19:14] VITALS: BP 131/78; Ht 157.5 cm; Wt 95.0 kg
[2019-06-01] MEDS ORDERED: KEFLEX500 MG PO (20:17)
== END 2019-06-01 20:20 | disposition home or self-care (01) ==
LOC: D.ER 18:56
DX: L03.011 Cellulitis of right finger (principal); I10 Essential (primary) hypertension; J45.909 Unspecified asthma, uncomplicated; K21.9 Gastro-esophageal reflux disease without esophagitis